=== PATIENT | male | born 1950 | race Caucasian/White ===

== ENCOUNTER 2018-04-15 15:44 | Inpatient (IN) ==
[2018-04-15] MEDS ORDERED: Metoprolol Inj 5 MG/5 ML Vial IV.PUSH ONE (17:21)
--- NOTE | 2018-04-15 17:31 | ED ---
HPI General Chief Complaint: Shortness of Breath/Dyspnea Stated Complaint: SOB,swollen right leg,weakness Time Seen by Provider: 04/15/18 17:12 Source: patient Mode of arrival: ambulatory Limitations: no limitations History of Present Illness The patient is a 68-year-old male who presents to the emergency department via private vehicle for shortness of breath. The patient notes a recent history of shortness of breath, worse with exertion and with lying supine. The patient states exertional activity causes shortness of breath, he is only able to walk short distances prior to having to sit down secondary to the shortness of breath. He also complains of shortness of breath lying supine , has to sit upright on several pillows, also states he sat upright in a recliner last night and was still unable to sleep. The patient saw his physician at the [facility] who placed him on Xarelto for atrial fibrillation and referred him to a baker test. The patient saw a baker test in [place], [place], who is going to schedule an outpatient stress test. The patient does have a history of atrial fibrillation but denies any known history of congestive heart failure. He also complains of increased swelling to the right lower extremity. Symptoms are moderate. MD Complaint: shortness of breath Onset (ago): day(s) Severity: moderate Consistency/Duration: intermittent and progressively worsening Relieving factors: rest Exacerbating factors: lying flat and exertion Associated symptoms: orthopnea Treatment prior to arrival: none Related Data Home oxygen amount: none Home Medications Medication Instructions Recorded Confirmed aspirin 81 mg PO DAILY 04/15/18 04/15/18 digoxin 0.125 mg PO DAILY 04/15/18 04/15/18 omeprazole 20 mg PO DAILY 04/15/18 04/15/18 rivaroxaban [Xarelto] 20 mg PO DAILY 04/15/18 04/15/18 simvastatin 20 mg PO QPM 04/15/18 04/15/18 terazosin 1 mg PO BID 04/15/18 04/15/18 Allergies Allergy/AdvReac Type Severity Reaction Status Date / Time penicillin G Allergy Severe Rash Verified 04/15/18 17:39 warfarin [From Coumadin] Allergy Rash Verified 04/15/18 17:39 Review of Systems ROS: all other systems reviewed are negative [facility] Medical History Medical History Atrial fibrillation (Acute) GERD (gastroesophageal reflux disease) (Acute) High cholesterol (Acute) Prostate enlargement (Acute) Social History Social History Substance History: No History of Abuse Second Hand Smoke Exposure: No Smoking Status: Never smoker How Often Do You Have a Drink Containing Alcohol: 2 to 4 times a month Recent Travel in [facility] within the Last 8 Weeks: No Recent Out of Country Travel within the Last 8 Weeks: No Exam Narrative Exam Narrative: GENERAL: Awake, alert, pleasant 68-year-old male who appears his stated age and is in no acute respiratory distress. SKIN: Focused skin assessment warm/dry. HEAD: Atraumatic. Normocephalic. EYES: Pupils equal and round. No scleral icterus. No injection or drainage. ENT: No nasal bleeding or discharge. Mucous membranes pink and moist. NECK: Trachea midline. No JVD. CARDIOVASCULAR: Irregularly irregular, heart rate in the 120s. RESPIRATORY: No accessory muscle use. Diminished breath sounds right base with a few crackles. GASTROINTESTINAL: Abdomen soft, non-tender, nondistended. Reducible umbilical hernia. MUSCULOSKELETAL: No obvious deformities. No clubbing. No cyanosis. Right lower extremity edema and increased size when compared to the left lower extremity. NEUROLOGICAL: Awake and alert. No obvious cranial nerve deficits. Motor grossly within normal limits. Normal speech. PSYCHIATRIC: Appropriate mood and affect; insight and judgment normal. Course Initial Documented Vital Signs Temperature 97.5 F L 04/15/18 16:21 Pulse Rate 112 H 04/15/18 16:21 Respiratory Rate 19 04/15/18 16:21 Blood Pressure 125/55 L 04/15/18 16:21 Pulse Oximetry 97 04/15/18 16:21 Last Documented Vital Signs Temperature 97.5 F L 04/15/18 16:21 Pulse Rate 84 04/15/18 17:56 Respiratory Rate 18 04/15/18 17:56 Blood Pressure 118/78 04/15/18 17:56 Pulse Oximetry 96 04/15/18 17:56 Medical Decision Making [facility] Narrative Medical decision making narrative: Chest x-ray reveals mild congestive heart failure with cardiomegaly. Ultrasound is negative for DVT.IV was established, labs are drawn and sent, and the patient was placed on cardiac telemetry monitoring and continuous pulse oximetry monitoring. Chest x-ray was performed. EKG was ordered and interpreted. The patient was administered Lopressor 5 mg intravenously and aspirin. Digoxin level was sent to lab. Dig level was subtherapeutic at 0.4. Patient's troponin is elevated at 0.07. Chest x-ray does reveal cardiomegaly and mild CHF. Patient has new onset CHF known require admission with echocardiogram and further evaluation. Patient is already quite anticoagulated with Xarelto. The on-call medical service was paged for admission. Medical Screen Exam Complete: Yes Emergency Medical Condition: Yes Differential Diagnosis Differential Diagnosis: Differential diagnosis includes atrial fibrillation with RVR, new onset congestive heart failure, cardiomyopathy, pulmonary embolism , DVT, acute coronary syndrome, ACS. Lab Data Lab results reviewed: Yes I reviewed the patient's lab results. Lab results narrative: BNP was elevated. Troponin is elevated at 0.07. Result diagrams: 04/15/18 17:33 04/15/18 17:33 Lab Results 04/15/18 04/15/18 04/15/18 Range/Units 17:33 17:33 17:33 WBC 9.5 (4.0-11.0) th/mm3 RBC 5.18 (4.50-5.90) mil/mm3 Hgb 15.4 (13.0-17.0) gm/dL Hct 46.4 (39.0-51.0) % MCV 89.6 (80.0-100.0) fL MCH 29.7 (27.0-34.0) pg MCHC 33.2 (32.0-36.0) % RDW 15.0 (11.6-17.2) % Plt Count 252 (150-450) th/mm3 MPV 10.3 (7.0-11.0) fL Neut % (Auto) 63.7 (16.0-70.0) % Lymph % (Auto) 27.2 (9.0-44.0) % [place] % (Auto) 8.2 H (0.0-8.0) % Eos % (Auto) 0.5 (0.0-4.0) % Baso % (Auto) 0.4 (0.0-2.0) % Neut # (Auto) 6.0 (1.8-7.7) th/mm3 Lymph # (Auto) 2.6 (1.0-4.8) th/mm3 [place] # (Auto) 0.8 (0.0-0.9) th/mm3 Eos # (Auto) 0.1 (0.0-0.4) th/mm3 Baso # (Auto) 0.0 (0.0-0.2) th/mm3 WBC Differential . Differential Comment Auto diff final PT 12.5 H (9.8-11.6) sec INR 1.2 Ratio APTT 25.9 (24.3-30.1) sec Sodium 140 (136-145) meq/L Potassium 4.4 (3.5-5.1) meq/L Chloride 108 H (98-107) meq/L Carbon Dioxide 23.0 (21.0-32.0) meq/L Anion Gap 9 (5-15) meq/L BUN 18 (7-18) mg/dL Creatinine 1.20 (0.60-1.30) mg/dL Estimated GFR 60 L (>89) mL/min Random Glucose 91 (74-106) mg/dL Calcium 8.8 (8.5-10.1) mg/dL Magnesium 2.2 (1.5-2.5) mg/dL Total Bilirubin 1.5 H (0.2-1.0) mg/dL AST 29 (15-37) U/L ALT 37 (12-78) U/L Alkaline Phosphatase 78 (45-117) U/L Total Creatine Kinase 102 (39-308) U/L Troponin I 0.07 H (0.02-0.05) ng/mL B-Natriuretic Peptide (0-100) pg/mL Total Protein 7.2 (6.4-8.2) g/dL Albumin 3.4 (3.4-5.0) g/dL Digoxin 0.4 L (0.8-2.0) ng/mL 04/15/18 Range/Units 17:33 WBC (4.0-11.0) th/mm3 RBC (4.50-5.90) mil/mm3 Hgb (13.0-17.0) gm/dL Hct (39.0-51.0) % MCV (80.0-100.0) fL MCH (27.0-34.0) pg MCHC (32.0-36.0) % RDW (11.6-17.2) % Plt Count (150-450) th/mm3 MPV (7.0-11.0) fL Neut % (Auto) (16.0-70.0) % Lymph % (Auto) (9.0-44.0) % [place] % (Auto) (0.0-8.0) % Eos % (Auto) (0.0-4.0) % Baso % (Auto) (0.0-2.0) % Neut # (Auto) (1.8-7.7) th/mm3 Lymph # (Auto) (1.0-4.8) th/mm3 [place] # (Auto) (0.0-0.9) th/mm3 Eos # (Auto) (0.0-0.4) th/mm3 Baso # (Auto) (0.0-0.2) th/mm3 WBC Differential Differential Comment PT (9.8-11.6) sec INR Ratio APTT (24.3-30.1) sec Sodium (136-145) meq/L Potassium (3.5-5.1) meq/L Chloride (98-107) meq/L Carbon Dioxide (21.0-32.0) meq/L Anion Gap (5-15) meq/L BUN (7-18) mg/dL Creatinine (0.60-1.30) mg/dL Estimated GFR (>89) mL/min Random Glucose (74-106) mg/dL Calcium (8.5-10.1) mg/dL Magnesium (1.5-2.5) mg/dL Total Bilirubin (0.2-1.0) mg/dL AST (15-37) U/L ALT (12-78) U/L Alkaline Phosphatase (45-117) U/L Total Creatine Kinase (39-308) U/L Troponin I (0.02-0.05) ng/mL B-Natriuretic Peptide 1142 H (0-100) pg/mL Total Protein (6.4-8.2) g/dL Albumin (3.4-5.0) g/dL Digoxin (0.8-2.0) ng/mL Imaging Data Attestation: I personally reviewed and interpreted this imaging study as follows : My impression: Cardiomegaly with mild CHF Radiologist's impression: Chest X-Ray 04/15/18 17:21 CONCLUSION: Mild cardiomegaly and patchy areas of opacity in both lower lungs. Venous Doppler Study 04/15/18 17:21 CONCLUSION: 1. No sonographic evidence for right lower extremity DVT. ECG Data EKG Prior to Arrival: No Attestation: I personally reviewed and interpreted this ECG as follows: Interpretation: EKG reveals atrial fibrillation with RVR. Nonspecific ST and T wave changes. Low QRS voltage in extremity leads. Discharge Plan Discharge Disposition Patient Disposition: 30 Still Patient Discharge Condition Condition: Stable Discharge Details Diagnosis: Atrial fibrillation with RVR, New onset of congestive heart failure, Elevated troponin Physicians Team ED Provider: Asif Ley Primary Care Provider: [facility] Rxs /Orders / Referrals /Forms Prescriptions: No Action terazosin 1 mg Capsule 1 mg PO BID RF: 0 simvastatin 20 mg Tablet 20 mg PO QPM RF: 0 omeprazole 20 mg Capsule,Delayed Release(Dr/Ec) 20 mg PO DAILY RF: 0 aspirin 81 mg Tablet,Chewable 81 mg PO DAILY RF: 0 digoxin 125 mcg Tablet 0.125 mg PO DAILY RF: 0 rivaroxaban [Xarelto] 20 mg Tablet 20 mg PO DAILY RF: 0 Status ED Status: With Doctor
--- NOTE | 2018-04-15 17:51 | XR ---
EXAM DATE: 04/15/2018 5:49 PM EDT AGE/SEX: 68 years / Male INDICATIONS: Shortness of breath. CLINICAL DATA: This is the patient's initial encounter. Patient reports that signs and symptoms have been present for 1 month and indicates a pain score of 0/10. MEDICAL/SURGICAL HISTORY: None. None. COMPARISON: [facility] [place], CHEST SINGLE AP, 06/21/2013. . FINDINGS: The heart is enlarged. Patchy areas of opacity without consolidation in the medial lower lungs bilate rally. Both hemidiaphragms are ununited. Stable area of subsegmental atelectasis lower lateral left l noreen. No evidence of pleural effusion. CONCLUSION: Mild cardiomegaly and patchy areas of opacity in both lower lungs. Electronically signed by: Shabbir Andre MD 04/15/2018 5:50 PM EDT
[2018-04-15 18:14] LABS: Baso % (Auto) 0.4 % (0.0-2.0); Eos # (Auto) 0.1 th/mm3 (0.0-0.4); Eos % (Auto) 0.5 % (0.0-4.0); Hematocrit 46.4 % (39.0-51.0); Hemoglobin 15.4 gm/dL (13.0-17.0); Lymph # (Auto) 2.6 th/mm3 (1.0-4.8); Lymph % (Auto) 27.2 % (9.0-44.0); Mean Corpuscular HGB Conc 33.2 % (32.0-36.0); Mean Corpuscular Hemoglobin 29.7 pg (27.0-34.0); Mean Corpuscular Volume 89.6 fL (80.0-100.0); Mean Platelet Volume 10.3 fL (7.0-11.0); Mono # (Auto) 0.8 th/mm3 (0.0-0.9); Mono % (Auto) 8.2 % (0.0-8.0); Neut % (Auto) 63.7 % (16.0-70.0); Platelet Count 252 th/mm3 (150-450); Red Blood Count 5.18 mil/mm3 (4.50-5.90); White Blood Count 9.5 th/mm3 (4.0-11.0)
[2018-04-15 18:20] LABS: Activated Partial Thrombo Time 25.9 sec (24.3-30.1); INR 1.2 Ratio; Prothrombin Time 12.5 sec (9.8-11.6)
--- NOTE | 2018-04-15 18:35 | US ---
EXAM DATE: 04/15/2018 6:33 PM EDT AGE/SEX: 68 years / Male INDICATIONS: Right leg swelling. CLINICAL DATA: This is the patient's initial encounter. Patient reports that signs and symptoms have been present for 3 days and indicates a pain score of 0/10. MEDICAL/SURGICAL HISTORY: Gastroesophageal reflux disease. Hypercholesterolemia. Atrial fibril lation. Prostate enlargement. None. COMPARISON: No prior exams available for comparison. TECHNIQUE: Venous ultrasound of both lower extremities was performed from the inguinal ligament to t he proximal calf. Real-time, color Doppler and spectral tracing, compression and augmentation techni ques were used. FINDINGS: Normal compression of the deep venous system from the inguinal region to the proximal calf . No echogenic clot is seen. Normal response of the venous system to augmentation and respiration. CONCLUSION: 1. No sonographic evidence for right lower extremity DVT. Electronically signed by: Florentino Smith MD 04/15/2018 6:33 PM EDT
[2018-04-15 18:52] LABS: Alkaline Phosphatase 78 U/L (45-117); Blood Urea Nitrogen 18 mg/dL (7-18); Creatine Kinase 102 U/L (39-308); Digoxin 0.4 ng/mL (0.8-2.0); Total Protein 7.2 g/dL (6.4-8.2); Troponin I 0.07 ng/mL (0.02-0.05)
[2018-04-15 18:58] LABS: Alanine Aminotransferase 37 U/L (12-78); Albumin 3.4 g/dL (3.4-5.0); Anion Gap 9 meq/L (5-15); Aspartate Aminotransferase 29 U/L (15-37); Calcium 8.8 mg/dL (8.5-10.1); Chloride 108 meq/L (98-107); Glomerular Filtration Rate 60 mL/min (>89); Glucose,Random 91 mg/dL (74-106); Magnesium 2.2 mg/dL (1.5-2.5); Potassium 4.4 meq/L (3.5-5.1); Sodium 140 meq/L (136-145)
[2018-04-15 19:05] LABS: Creatine Kinase MB 2.5 ng/mL (0.5-3.6)
[2018-04-15] MEDS ORDERED: Acetaminophen 325 MG Tablet PO PRN (21:03)
[2018-04-15] MEDS ORDERED: Bisacodyl 10 MG Supp RECTAL PRN (21:03)
[2018-04-15] MEDS: Metoprolol Tartrate 25 MG Tablet PO SCH (21:22)
--- NOTE | 2018-04-15 21:27 | P.HP ---
History of Present Illness Service: [facility] Primary Care Physician: Physician 's [facility] History of Present Illness: 68-year-old male with a past medical history significant for hyperlipidemia, BPH , GERD and atrial fibrillation anticoagulated on Xarelto presents the emergency department for evaluation of shortness of breath and right lower extremity swelling. The patient reports that he has had recently worsening shortness of breath that has been over the past 3 days. He reports that his symptoms worsen when he is lying flat or with exertion. He also endorses intermittent palpitations. He reports he has had to sleep in a recliner last night and was still unable to sleep secondary to his dyspnea. The patient reports that he saw his physician at the [place] [facility] who placed him on Xarelto for atrial fibrillation and referred him to a disk sander who is in [place]. Patient denies any known history of congestive heart failure. He also complains of a 2 day history of increased swelling to the right lower extremity. He reports his foot has been swollen for a long time but now his leg is also swollen. He denies any chest pain. No abdominal pain. No nausea/ vomiting/diarrhea. No fever/chills. No lateralizing signs/symptoms. Inpatient Certification: I certify that the inpatient services were ordered in accordance with Medicare regulations governing the order. This includes certification that hospital inpatient services are reasonable and necessary and in the case of services not specified as inpatient-only under 42 CFR 419.22(n), that they are appropriately provided as inpatient services in accordance to with the 2-midnight benchmark under 43 CFR 412.3(e) Estimated Total Length of Stay (Days): 2 Plans for Post Hospital Care: Home Review of Systems All other systems reviewed negative except as stated in HPI [facility] - History History Provided By: Patient - Medical / Surgical Hx Neg / Unobtainable Surgical History: No Previous Surgery - Medical History Medical History: Medical History (Last Updated 04/15/18 @ 17:37 by Uriel García) Atrial fibrillation GERD (gastroesophageal reflux disease) High cholesterol Prostate enlargement - Family History Family History: Family History (Last Updated 04/15/18 @ 21:20 by Queenie Cole MD) Other Family history normal - Tobacco History Second Hand Smoke Exposure: No Tobacco Use In Past 30 Days: No Smoking Status: Never smoker - Alcohol History How Often Do You Have a Drink Containing Alcohol: 2 to 4 times a month - Substance Use History Substance History: No History of Abuse - Travel History Recent Travel in the [place] Within the Last 8 Weeks: No Recent Travel Out of the Country Within the Last 8 Weeks: No - Immunization History Tetanus Immunization: <5 Years Hx Influenza Vaccine This Season: No Medications and Allergies Active Medications: Active Medications Acetaminophen (Tylenol) 650 mg PO Q4H PRN PRN Reason: Temp > 100.4 Al Hydroxide/Mg Hydroxide (Milk Of Magnesia Liq) 30 ml PO Q12H PRN PRN Reason: Mild Constipation Bisacodyl (Dulcolax Supp) 10 mg RECTAL DAILY PRN PRN Reason: SEVERE CONSITIPATION Furosemide (Lasix Inj) 40 mg IV.PUSH BID@0900,1800 PEARL Lactulose (Lactulose Liq) 30 ml PO DAILY PRN PRN Reason: SEVERE CONSITIPATION Metoprolol Tartrate (Lopressor) 12.5 mg PO BID PEARL Ondansetron HCl (Zofran Inj) 4 mg IV.PUSH Q6H PRN PRN Reason: NAUSEA OR VOMITING Senna/Docusate Sodium (Yenni-Colace) 1 tab PO BID PEARL Sennosides (Senokot) 17.2 mg PO Q12H PRN PRN Reason: Moderate Constipation Sodium Chloride (Ns Flush) 2 ml IV.FLUSH BID PEARL Sodium Chloride (Ns Flush) 2 ml IV.FLUSH UNSCH PRN PRN Reason: FLUSH AFTER USING IV ACCESS Allergies Allergy/AdvReac Type Severity Reaction Status Date / Time penicillin G Allergy Severe Rash Verified 04/15/18 17:39 warfarin [From Coumadin] Allergy Rash Verified 04/15/18 17:39 Home Medications Medication Instructions Recorded Confirmed Type aspirin 81 mg PO DAILY 04/15/18 04/15/18 History digoxin 0.125 mg PO DAILY 04/15/18 04/15/18 History omeprazole 20 mg PO DAILY 04/15/18 04/15/18 History rivaroxaban [Xarelto] 20 mg PO DAILY 04/15/18 04/15/18 History simvastatin 20 mg PO QPM 04/15/18 04/15/18 History terazosin 1 mg PO BID 04/15/18 04/15/18 History Exam Vital signs: Vital Signs 04/15/18 16:21 04/15/18 17:36 04/15/18 17:56 Temperature 97.5 F L Pulse Rate 112 H 124 H 84 Respiratory Rate 19 18 18 Blood Pressure 125/55 L 114/83 118/78 Pulse Oximetry 97 96 96 04/15/18 19:13 04/15/18 20:15 Temperature Pulse Rate 92 H Respiratory Rate 18 16 Blood Pressure 122/74 Pulse Oximetry 96 Intake & Output 04/15/18 04/15/18 04/16/18 06:59 18:59 06:59 Weight 89.811 kg Narrative: Gen.: No acute distress Head: Normocephalic. Atraumatic. EENT: Pupils equal round and reactive to light. Nose without drainage. Airway intact. Throat without injection. Cardiovascular: Tachycardic. Irregularly irregular rhythm. No murmurs/rubs/ gallops. Respiratory: Lungs clear to auscultation bilaterally. No wheezes or rhonchi. Abdomen: Soft, nontender, nondistended. No peritoneal signs. Musculoskeletal: No gross deformities. 2+ right lower extremity edema. Skin: No obvious rashes or erythema. Neuro: Sensory and motor grossly intact. Cranial nerves II through XII grossly intact. Results - Labs CBC & Chem 7: 04/15/18 17:33 04/15/18 17:33 Labs: Laboratory Results - last 24 hr 04/15/18 04/15/18 04/15/18 17:33 17:33 17:33 WBC 9.5 RBC 5.18 Hgb 15.4 Hct 46.4 MCV 89.6 MCH 29.7 MCHC 33.2 RDW 15.0 Plt Count 252 MPV 10.3 Neut % (Auto) 63.7 Lymph % (Auto) 27.2 [place] % (Auto) 8.2 H Eos % (Auto) 0.5 Baso % (Auto) 0.4 Neut # (Auto) 6.0 Lymph # (Auto) 2.6 [place] # (Auto) 0.8 Eos # (Auto) 0.1 Baso # (Auto) 0.0 WBC Differential . Differential Comment Auto diff final PT 12.5 H INR 1.2 APTT 25.9 Sodium 140 Potassium 4.4 Chloride 108 H Carbon Dioxide 23.0 Anion Gap 9 BUN 18 Creatinine 1.20 Estimated GFR 60 L Random Glucose 91 Calcium 8.8 Magnesium 2.2 Total Bilirubin 1.5 H AST 29 ALT 37 Alkaline Phosphatase 78 Total Creatine Kinase 102 CK-MB (CK-2) 2.5 Troponin I 0.07 H B-Natriuretic Peptide Total Protein 7.2 Albumin 3.4 Digoxin 0.4 L 04/15/18 17:33 WBC RBC Hgb Hct MCV MCH MCHC RDW Plt Count MPV Neut % (Auto) Lymph % (Auto) [place] % (Auto) Eos % (Auto) Baso % (Auto) Neut # (Auto) Lymph # (Auto) [place] # (Auto) Eos # (Auto) Baso # (Auto) WBC Differential Differential Comment PT INR APTT Sodium Potassium Chloride Carbon Dioxide Anion Gap BUN Creatinine Estimated GFR Random Glucose Calcium Magnesium Total Bilirubin AST ALT Alkaline Phosphatase Total Creatine Kinase CK-MB (CK-2) Troponin I B-Natriuretic Peptide 1142 H Total Protein Albumin Digoxin - Imaging Impressions Chest X-Ray 04/15/18 17:21 CONCLUSION: Mild cardiomegaly and patchy areas of opacity in both lower lungs. Venous Doppler Study 04/15/18 17:21 CONCLUSION: 1. No sonographic evidence for right lower extremity DVT. Caprini VTE Risk Assessment Caprini VTE Risk Assessment: Moderate/High Risk (score >= 2) Caprini Risk Assessment Model: Point Value = 1 Point Value = 2 Point Value = 3 Point Value = 5 Age 41-60 Minor surgery BMI > 25 kg/m2 Swollen legs Varicose veins or History of unexplained or recurrent spontaneous Oral contraceptives or hormone replacement Sepsis (< 1 month) Serious lung disease, including pneumonia (< 1 month) Abnormal pulmonary function Acute myocardial infarction Congestive heart failure (< 1 month) History of inflammatory bowel disease Medical patient at bed rest Age 61-74 Arthroscopic surgery Major open surgery (> 45 min) Laparoscopic surgery (> 45 min) Malignancy Confined to bed (> 72 hours) Immobilizing plaster cast Central venous access Age >= 75 History of VTE Family history of VTE Factor V Leiden Prothrombin [id number] Lupus anticoagulant Anticardiolipin antibodies Elevated serum homocysteine Heparin-induced thrombocytopenia Other congenital or acquired thrombophilia Stroke (< 1 month) Elective arthroplasty Hip, pelvis, or leg fracture Acute spinal cord injury (< 1 month) Prophylaxis Regimen: Total Risk Factor Score Risk Level Prophylaxis Regimen 0-1 Low Early ambulation 2 Moderate Order ONE of the following: *Sequential Compression Device (SCD) *Heparin 5000 units SQ BID 3-4 Higher Order ONE of the following medications: *Heparin 5000 units SQ TID *Enoxaparin/Lovenox 40 mg SQ daily (WT < 150 kg, CrCl > 30 mL/min) *Enoxaparin/Lovenox 30 mg SQ daily (WT < 150 kg, CrCl > 10-29 mL/min) *Enoxaparin/Lovenox 30 mg SQ BID (WT < 150 kg, CrCl > 30 mL/min) AND/OR *Sequential Compression Device (SCD) 5 or more Highest Order ONE of the following medications: *Heparin 5000 units SQ TID (Preferred with Epidurals) *Enoxaparin/Lovenox 40 mg SQ daily (WT < 150 kg, CrCl > 30 mL/min) *Enoxaparin/Lovenox 30 mg SQ daily (WT < 150 kg, CrCl > 10-29 mL/min) *Enoxaparin/Lovenox 30 mg SQ BID (WT < 150 kg, CrCl > 30 mL/min) AND *Sequential Compression Device (SCD) Assessment and Plan - Plan Assessment/plan: 1. Atrial fibrillation with rapid ventricular response/elevated troponin EKG significant for atrial fibrillation with rapid ventricular response, no ST segment elevations or depressions, personally reviewed Troponin 0.07, likely secondary to A. fib ACS rule out pending; serial troponins/EKGs Rate controlled with IV metoprolol 1 Patient on digoxin at home, subtherapeutic Continue home digoxin Start p.o. metoprolol IV metoprolol as needed Continue home Xarelto 2. New onset CHF/shortness of breath Patient with no history of CHF BNP 1142 Chest x-ray significant for mild cardiomegaly, personally reviewed IV Lasix Echo pending Cardiology consulted, appreciate assistance 3. Hyperlipidemia/BPH/GERD Continue home medications FEN N.p.o. Electrolytes: Urine replete as needed Xarelto
[2018-04-16 00:30] LABS: Troponin I 0.06 ng/mL (0.02-0.05)
[2018-04-16] MEDS: Digoxin 125 MCG Tablet PO SCH (08:37)
[2018-04-16] MEDS: Rivaroxaban 20 MG Tablet PO SCH (08:37)
[2018-04-16] MEDS: Pantoprazole Sodium 20 MG DR Tablet PO SCH (08:38)
[2018-04-16] MEDS: Senna/Docusate Sodium 8.6/50 MG Tablet PO SCH ×2 (08:38→22:18)
[2018-04-16] MEDS: Metoprolol Tartrate 25 MG Tablet PO SCH ×2 (08:39→22:18)
[2018-04-16 09:03] LABS: Troponin I 0.05 ng/mL (0.02-0.05)
--- NOTE | 2018-04-16 14:54 | ECG ---
Date Performed: 04/15/2018 Time Performed: 16:54:36 PTAGE: 68 years EKG: ATRIAL FIBRILLATION WITH RAPID VENTRICULAR RESPONSE LOW QRS VOLTAGE IN EXTREMITY LEADS NONS PECIFIC ST & T-WAVE ABNORMALITY ABNORMAL RHYTHM ECG Compared to PREVIOUS TRACING , ventricular response to atrial fibrillation is much faster, otherwise no significant change. PREVIOUS TRACIN06/22/2013 01.43 DOCTOR: Ruddy Trevino Interpretating Date/Time 04/16/2018 14:54:02
--- NOTE | 2018-04-16 14:56 | ECG ---
Date Performed: 04/16/2018 Time Performed: 01:25:31 PTAGE: 68 years EKG: ATRIAL FIBRILLATION LOW VOLTAGE IN LIMB LEADS NONSPECIFIC T WAVE CHANGES Compared to previo us tracing, ventricular response to atrial fibrillation is now in the normal range. T-wave changes an terolaterally are more prominent. ABNORMAL ECG PREVIOUS TRACING : 04/15/2018 16.54 DOCTOR: Ruddy Trevino Interpretating Date/Time 04/16/2018 14:55:00
--- NOTE | 2018-04-16 15:19 | P.PNIM ---
Subjective Interval history: A. fib RVR has improved through time. Patient was started on metoprolol for this. No evidence of recurrence of sustained A. fib RVR. He has improvement of lower extremity edema and his pulmonary edema appears to be improving also. However, echocardiogram shows ejection fraction between 20 and 25% based on a preliminary wet read. Further workup is warranted. Physical Exam Vital signs: Vital Signs 04/15/18 16:21 04/15/18 17:36 04/15/18 17:56 Temperature 97.5 F L Pulse Rate 112 H 124 H 84 Respiratory Rate 19 18 18 Blood Pressure 125/55 L 114/83 118/78 Pulse Oximetry 97 96 96 04/15/18 19:13 04/15/18 20:15 04/15/18 21:23 Temperature Pulse Rate 92 H 103 H Respiratory Rate 18 16 18 Blood Pressure 122/74 120/82 Pulse Oximetry 96 98 04/15/18 22:11 04/15/18 22:35 04/15/18 23:51 Temperature 98.1 F Pulse Rate 91 H 89 98 H Respiratory Rate 16 16 18 Blood Pressure 125/74 Pulse Oximetry 99 98 95 04/16/18 04:00 04/16/18 08:00 04/16/18 08:24 Temperature 97.9 F 97.4 F L Pulse Rate 87 102 H Respiratory Rate 18 16 Blood Pressure 136/91 H 98/75 L Pulse Oximetry 94 L 93 L 95 04/16/18 12:00 Temperature 97.6 F Pulse Rate 60 Respiratory Rate 16 Blood Pressure 119/63 Pulse Oximetry 94 L Intake & Output 04/15/18 04/16/18 04/16/18 18:59 06:59 18:59 Weight 89.811 kg Other: Date of Last Bowel Movement 04/15/18 Narrative: GENERAL: NAD, A&Ox3 HEAD: Normocephalic. NECK: Supple, trachea midline. No lymphadenopathy. EYES: No scleral icterus. No injection or drainage. CARDIOVASCULAR: Regular rate and rhythm without murmurs, gallops, or rubs. RESPIRATORY: Breath sounds equal bilaterally. No accessory muscle use. GASTROINTESTINAL: Abdomen soft, non-tender, nondistended. MUSCULOSKELETAL: No cyanosis, or edema. SKIN: Warm and dry. NEURO: No focal neurological deficits. Results - Labs CBC & Chem 7: 04/15/18 17:33 04/15/18 17:33 Laboratory Results - last 24 hr 04/15/18 04/15/18 04/15/18 17:33 17:33 17:33 WBC 9.5 RBC 5.18 Hgb 15.4 Hct 46.4 MCV 89.6 MCH 29.7 MCHC 33.2 RDW 15.0 Plt Count 252 MPV 10.3 Neut % (Auto) 63.7 Lymph % (Auto) 27.2 [place] % (Auto) 8.2 H Eos % (Auto) 0.5 Baso % (Auto) 0.4 Neut # (Auto) 6.0 Lymph # (Auto) 2.6 [place] # (Auto) 0.8 Eos # (Auto) 0.1 Baso # (Auto) 0.0 WBC Differential . Differential Comment Auto diff final PT 12.5 H INR 1.2 APTT 25.9 Sodium 140 Potassium 4.4 Chloride 108 H Carbon Dioxide 23.0 Anion Gap 9 BUN 18 Creatinine 1.20 Estimated GFR 60 L Random Glucose 91 Calcium 8.8 Magnesium 2.2 Total Bilirubin 1.5 H AST 29 ALT 37 Alkaline Phosphatase 78 Total Creatine Kinase 102 CK-MB (CK-2) 2.5 Troponin I 0.07 H B-Natriuretic Peptide Total Protein 7.2 Albumin 3.4 Digoxin 0.4 L 04/15/18 04/15/18 04/16/18 17:33 23:48 05:30 WBC RBC Hgb Hct MCV MCH MCHC RDW Plt Count MPV Neut % (Auto) Lymph % (Auto) [place] % (Auto) Eos % (Auto) Baso % (Auto) Neut # (Auto) Lymph # (Auto) [place] # (Auto) Eos # (Auto) Baso # (Auto) WBC Differential Differential Comment PT INR APTT Sodium Potassium Chloride Carbon Dioxide Anion Gap BUN Creatinine Estimated GFR Random Glucose Calcium Magnesium Total Bilirubin AST ALT Alkaline Phosphatase Total Creatine Kinase 66 74 CK-MB (CK-2) Troponin I 0.06 H 0.05 B-Natriuretic Peptide 1142 H Total Protein Albumin Digoxin - Imaging Impressions Chest X-Ray 04/15/18 17:21 CONCLUSION: Mild cardiomegaly and patchy areas of opacity in both lower lungs. Venous Doppler Study 04/15/18 17:21 CONCLUSION: 1. No sonographic evidence for right lower extremity DVT. Assessment and Plan - Assessment (1) Atrial fibrillation with RVR Code(s): I48.91 - Unspecified atrial fibrillation Status: Acute (2) New onset of congestive heart failure Code(s): I50.9 - Heart failure, unspecified Status: Acute (3) Elevated troponin Code(s): R74.8 - Abnormal levels of other serum enzymes Status: Acute - Plan 68-year-old male admitted secondary to A. fib RVR with new finding of CHF Atrial fibrillation with rapid ventricular response Elevated troponin Slight downward trend in troponin through time A. fib RVR along with CHF may have been the cause of his mild elevation in troponin Continue metoprolol Continue digoxin Xarelto Cardiology following New onset CHF shortness of breath No prior history of CHF Ejection fraction approximately 20-25% Cardiology following Hyperlipidemia Continue present treatment Follow as an outpatient BPH GERD Continue home medications DVT prophylaxis Xarelto
[2018-04-17 08:31] LABS: Baso % (Auto) 0.4 % (0.0-2.0); Eos % (Auto) 0.7 % (0.0-4.0); Hematocrit 47.3 % (39.0-51.0); Hemoglobin 15.7 gm/dL (13.0-17.0); Lymph # (Auto) 1.7 th/mm3 (1.0-4.8); Lymph % (Auto) 23.4 % (9.0-44.0); Mean Corpuscular HGB Conc 33.1 % (32.0-36.0); Mean Corpuscular Volume 90.5 fL (80.0-100.0); Mean Platelet Volume 10.2 fL (7.0-11.0); Mono # (Auto) 0.5 th/mm3 (0.0-0.9); Mono % (Auto) 7.6 % (0.0-8.0); Neut # (Auto) 4.9 th/mm3 (1.8-7.7); Neut % (Auto) 67.9 % (16.0-70.0); Platelet Count 212 th/mm3 (150-450); Red Blood Count 5.23 mil/mm3 (4.50-5.90); Red Cell Distribution Width 14.7 % (11.6-17.2); White Blood Count 7.2 th/mm3 (4.0-11.0)
[2018-04-17 09:05] LABS: Alanine Aminotransferase 34 U/L (12-78); Albumin 3.2 g/dL (3.4-5.0); Alkaline Phosphatase 76 U/L (45-117); Anion Gap 10 meq/L (5-15); Aspartate Aminotransferase 18 U/L (15-37); Blood Urea Nitrogen 16 mg/dL (7-18); Calcium 8.8 mg/dL (8.5-10.1); Chloride 102 meq/L (98-107); Glomerular Filtration Rate 57 mL/min (>89); Glucose,Random 117 mg/dL (74-106); Potassium 3.5 meq/L (3.5-5.1); Sodium 140 meq/L (136-145); Troponin I 0.05 ng/mL (0.02-0.05)
--- NOTE | 2018-04-17 11:21 | ECHRPT ---
Indication: heart failure CONCLUSIONS The left ventricular systolic function is severely reduced with an estimated ejection fraction in th e range of 20-25%. Moderately dilated left ventricle. Wall thickness is measured at the upper limits of normal. There is global left ventricular dysfunction. The right ventriclar size is upper limits of normal. The left atrial size is ypersklx-py-ovfobboo dilated. The right atrial size is pfqw-ls-sflzeakjlr dilated. Mild thickening of the mitral valve leaflets. Moderate mitral valve regurgitation. Diffuse calcification of the aortic valve. Mild aortic valve regurgitation. Mild thickening of the tricuspid valve leaflets. There is severe tricuspid regurgitation. The estimated pulmonary arterial pressure is 62.1 mmHg. Mild pulmonary valve regurgitation. BP: / HR: Rhythm: Sinus MEASUREMENTS (Male / Female) Normal Values Technical Quality:Good 2D ECHO LV Diastolic Diameter PLAX 5.9 cm 4.2 - 5.9 / 3.9 - 5.3 cm LV Systolic Diameter PLAX 5.4 cm IVS Diastolic Thickness 1.1 cm 0.6 - 1.0 / 0.6 - 0.9 cm LVPW Diastolic Thickness 1.1 cm 0.6 - 1.0 / 0.6 - 0.9 cm LV Relative Wall Thickness 0.4 RV Internal Dim ED PLAX 3.8 cm LVOT Diameter 1.9 cm LA Systolic Diameter LX 4.9 cm 3.0 - 4.0 / 2.7 - 3.8 cm LV Ejection Fraction MOD 4C 24.9 % LV Ejection Fraction 4C AL 24.5 % M-MODE Aortic Root Diameter MM 2.3 cm LA Systolic Diameter MM 4.8 cm LA Ao Ratio MM 2.1 AV Cusp Separation MM 1.7 cm DOPPLER AV Peak Velocity 104.0 cm/s AV Peak Gradient 4.3 mmHg AI Peak Velocity 169.0 cm/s AI Peak Gradient 11.4 mmHg AI Pressure Half Time 778.5 ms LVOT Peak Velocity 62.2 cm/s LVOT Peak Gradient 1.5 mmHg AV Area Cont Eq pk 1.7 cm MV Area PHT 5.6 cm Mitral E Point Velocity 81.9 cm/s Mitral A Point Velocity 56.8 cm/s Mitral E to A Ratio 1.4 LV E' Lateral Velocity 7.3 cm/s Mitral E to LV E' Lateral Ratio 11.2 LV E' Septal Velocity 7.2 cm/s Mitral E to LV E' Septal Ratio 11.4 TR Peak Velocity 361.0 cm/s TR Peak Gradient 52.1 mmHg Right Atrial Pressure 10.0 mmHg Pulmonary Artery Systolic Pressu 62.1 mmHg Right Ventricular Systolic Press 62.1 mmHg PV Peak Velocity 77.4 cm/s PV Peak Gradient 2.4 mmHg FINDINGS LEFT VENTRICLE The left ventricular systolic function is severely reduced with an estimated ejection fraction in th e range of 20-25%. Moderately dilated left ventricle. Wall thickness is measured at the upper limits of normal. There is global left ventricular dysfunction. RIGHT VENTRICLE The right ventriclar size is upper limits of normal. LEFT ATRIUM The left atrial size is dhjsdlai-mn-rduomdmt dilated. RIGHT ATRIUM The right atrial size is huoj-gc-jkxofhyjbb dilated. ATRIAL SEPTUM Normal atrial septal thickness without atrial level shunting by limited color doppler interrogation. AORTA The aortic root and proximal ascending aorta are normal in size on limited imaging. MITRAL VALVE Mild thickening of the mitral valve leaflets. Moderate mitral valve regurgitation. AORTIC VALVE Trileaflet aortic valve. Diffuse calcification of the aortic valve. Mild aortic valve regurgitation. TRICUSPID VALVE Mild thickening of the tricuspid valve leaflets. There is severe tricuspid regurgitation. The estimated pulmonary arterial pressure is 62.1 mmHg. PULMONARY VALVE Mild pulmonary valve regurgitation. VESSELS The inferior vena cava is normal in size. PERICARDIUM No pericardial effusion. Lasha Hernandez MD, FACC (Electronically Signed) Final Date:17 April 2018 11:20
[2018-04-17] MEDS: Digoxin 125 MCG Tablet PO SCH (13:06)
[2018-04-17] MEDS: Pantoprazole Sodium 20 MG DR Tablet PO SCH (13:06)
[2018-04-17] MEDS: Metoprolol Tartrate 25 MG Tablet PO SCH ×2 (13:11→20:34)
[2018-04-17] MEDS: Senna/Docusate Sodium 8.6/50 MG Tablet PO SCH ×2 (13:14→20:35)
[2018-04-17] MEDS: Rivaroxaban 20 MG Tablet PO SCH (16:05)
--- NOTE | 2018-04-17 17:28 | P.PNIM ---
Subjective Interval history: No new complaints from patient. Patient is hoping to go home soon. Cardiology evaluation pending. Physical Exam Vital signs: Vital Signs 04/16/18 20:00 04/16/18 23:51 04/17/18 04:00 Temperature 98.8 F 97.7 F 97.8 F Pulse Rate 63 115 H 86 Respiratory Rate 18 18 18 Blood Pressure 99/77 L 150/93 H 122/84 Pulse Oximetry 97 97 94 L 04/17/18 07:58 04/17/18 12:00 04/17/18 16:55 Temperature 97.6 F 97.5 F L Pulse Rate 71 97 H 108 H Respiratory Rate 20 18 Blood Pressure 130/91 H 110/74 Pulse Oximetry 93 L 96 Intake & Output 04/16/18 04/17/18 04/17/18 18:59 06:59 18:59 Intake Total 0 / 0 480 / 480 Output Total 2325 / 2325 Balance 0 / 0 -1845 / -1845 Weight 83.8 kg Intake: Oral 480 / 480 Other 0 / 0 Output: Urine 2325 / 2325 Other: Other Intake Source Saline Solution Weight On Admission 83.8 kg Narrative: GENERAL: NAD, A&Ox3 HEAD: Normocephalic. NECK: Supple, trachea midline. No lymphadenopathy. EYES: No scleral icterus. No injection or drainage. CARDIOVASCULAR: Regular rate and rhythm without murmurs, gallops, or rubs. RESPIRATORY: Breath sounds equal bilaterally. No accessory muscle use. GASTROINTESTINAL: Abdomen soft, non-tender, nondistended. MUSCULOSKELETAL: No cyanosis, or edema. SKIN: Warm and dry. NEURO: No focal neurological deficits. Results - Labs CBC & Chem 7: 04/17/18 07:12 04/17/18 07:12 Laboratory Results - last 24 hr 04/17/18 04/17/18 07:12 07:12 WBC 7.2 RBC 5.23 Hgb 15.7 Hct 47.3 MCV 90.5 MCH 30.0 MCHC 33.1 RDW 14.7 Plt Count 212 MPV 10.2 Neut % (Auto) 67.9 Lymph % (Auto) 23.4 [place] % (Auto) 7.6 Eos % (Auto) 0.7 Baso % (Auto) 0.4 Neut # (Auto) 4.9 Lymph # (Auto) 1.7 [place] # (Auto) 0.5 Eos # (Auto) 0.0 Baso # (Auto) 0.0 WBC Differential . Differential Comment Auto diff final Sodium 140 Potassium 3.5 D Chloride 102 Carbon Dioxide 28.0 Anion Gap 10 BUN 16 Creatinine 1.25 Estimated GFR 57 L Random Glucose 117 H Calcium 8.8 Total Bilirubin 1.9 H AST 18 ALT 34 Alkaline Phosphatase 76 Troponin I 0.05 Total Protein 7.0 Albumin 3.2 L TSH 1.730 Assessment and Plan - Assessment (1) Atrial fibrillation with RVR Code(s): I48.91 - Unspecified atrial fibrillation Status: Acute (2) New onset of congestive heart failure Code(s): I50.9 - Heart failure, unspecified Status: Acute (3) Elevated troponin Code(s): R74.8 - Abnormal levels of other serum enzymes Status: Acute - Plan 68-year-old male admitted secondary to A. fib RVR with new finding of CHF Cardiology evaluation pending. Transient episodes of tachycardia remain. Continue to monitor clinically for recurrence of A. fib RVR. No new complaints from the patient today. No chest pain. No syncope. Atrial fibrillation with rapid ventricular response Elevated troponin Slight downward trend in troponin through time A. fib RVR along with CHF may have been the cause of his mild elevation in troponin Continue metoprolol Continue digoxin Xarelto Cardiology following New onset CHF shortness of breath No prior history of CHF Ejection fraction approximately 20-25% Cardiology evaluation pending Hyperlipidemia Continue present treatment Follow as an outpatient BPH GERD Continue home medications DVT prophylaxis Xarelto
[2018-04-18] MEDS: Digoxin 125 MCG Tablet PO SCH (09:36)
[2018-04-18] MEDS: Metoprolol Tartrate 25 MG Tablet PO SCH ×2 (09:36→21:13)
[2018-04-18] MEDS: Rivaroxaban 20 MG Tablet PO SCH (09:36)
[2018-04-18] MEDS: Pantoprazole Sodium 20 MG DR Tablet PO SCH (09:37)
[2018-04-18] MEDS: Senna/Docusate Sodium 8.6/50 MG Tablet PO SCH ×2 (09:39→21:14)
--- NOTE | 2018-04-18 12:37 | P.PN ---
Subjective Interval history: Patient sitting up in chair, very anxious asking when he is going home. Indicates leg swelling has improved, no shortness of breath while ambulating, no chest pain, no cough, no sputum production. Telemetry reviewed, remains A. fib, heart rate 90s-100. Indicates that he was recently at [facility] for possible TIA and was started on Xarelto, prior to that he was on warfarin. States that he supposed to have a stress test on April [address] Storey. Physical Exam Vital signs: Vital Signs 04/17/18 16:00 04/17/18 16:55 04/17/18 20:00 Temperature 97.8 F 97.1 F L Pulse Rate 85 108 H 115 H Respiratory Rate 18 16 Blood Pressure 127/74 100/71 Pulse Oximetry 96 97 04/18/18 00:00 04/18/18 02:55 04/18/18 04:00 Temperature 97.8 F 97.8 F Pulse Rate 77 73 57 L Respiratory Rate 16 16 Blood Pressure 98/81 L 119/71 Pulse Oximetry 94 L 97 04/18/18 06:40 04/18/18 08:00 Temperature 97.4 F L 97.4 F L Pulse Rate 47 L 100 H Respiratory Rate 20 18 Blood Pressure 142/83 H 109/82 Pulse Oximetry 96 96 Intake & Output 04/17/18 04/18/18 04/18/18 18:59 06:59 18:59 Intake Total 480 / 480 240 / 240 Output Total 900 / 900 Balance -420 / -420 240 / 240 Weight 84.9 kg 83.9 kg Intake: Oral 480 / 480 240 / 240 Output: Urine 900 / 900 Other: Date of Last Bowel Movement 04/17/18 04/17/18 # Bowel Movements 1 Weight On Admission 83.8 kg Narrative: GENERAL: Well-nourished, well-developed patient in no apparent distress. SKIN: Warm and dry. HEAD: Atraumatic. Normocephalic. EYES: Pupils equal and round. No scleral icterus. No injection or drainage. ENT: No nasal bleeding or discharge. Mucous membranes pink and moist. NECK: Trachea midline. No JVD. CARDIOVASCULAR: S1-S2, irregularly irregular. RESPIRATORY: Diminished at bases. GASTROINTESTINAL: Abdomen soft, non-tender, nondistended. Hepatic and splenic margins not palpable. MUSCULOSKELETAL: Extremities without clubbing, cyanosis, or edema. No obvious deformities. NEUROLOGICAL: Awake and alert. No obvious cranial nerve deficits. Motor grossly within normal limits. Five out of 5 muscle strength in the arms and legs. Normal speech. PSYCHIATRIC: Appropriate mood and affect; insight and judgment normal. Results - Labs CBC & Chem 7: 04/17/18 07:12 04/17/18 07:12 Assessment and Plan - Assessment (1) Atrial fibrillation with RVR Code(s): I48.91 - Unspecified atrial fibrillation Status: Chronic (2) New onset of congestive heart failure Code(s): I50.9 - Heart failure, unspecified Status: Acute (3) Elevated troponin Code(s): R74.8 - Abnormal levels of other serum enzymes Status: Acute (4) Cardiomyopathy Code(s): I42.9 - Cardiomyopathy, unspecified Status: Acute (5) Hx TIA/stroke w/o resid Code(s): Z86.73 - Personal history of transient ischemic attack (TIA), and cerebral infarction without residual deficits Status: Chronic (6) Anxiety Code(s): F41.9 - Anxiety disorder, unspecified Status: Chronic (7) Hyperlipidemia Code(s): E78.5 - Hyperlipidemia, unspecified Status: Chronic - Plan 68-year-old male admitted secondary to A. fib RVR with new finding of CHF Atrial fibrillation with rapid ventricular response Elevated troponin Slight downward trend in troponin through time A. fib RVR along with CHF may have been the cause of his mild elevation in troponin Heart rate improved, 90s-100. Reported nonsustained VT, unable to find strip -Continue metoprolol 12.5 mg PO BID -Continue digoxin -Xarelto -Cardiology has evaluated, d/w NETWORK SYSTEMS ANALYST New onset CHF shortness of breath has improved, no edema now. No prior history of CHF -Echo done, Ejection fraction approximately 20-25% -Cardiology following, pt. saw Dr. Storey was supposed to have STT on 04/25. Will wait for Dr. Duenas's recommendation. -continue BB, Dig, Lasix -change to PO Lasix 20 mg PO BID -We will add low-dose lisinopril, 2.5 mg p.o. daily. Hx TIA, pt reports admission to [facility] for poss stroke. -was recently put on Xarelto Hyperlipidemia -Continue present treatment -Follow as an outpatient BPH GERD -Continue home medications DVT prophylaxis Xarelto We will follow up on cardiology recommendations. Discussed with patient at length, he is anxious to go home. (4) Cardiomyopathy Qualifiers: Cardiomyopathy type: unspecified Qualified Code(s): I42.9 - Cardiomyopathy, unspecified (7) Hyperlipidemia Qualifiers: Hyperlipidemia type: unspecified Qualified Code(s): E78.5 - Hyperlipidemia, unspecified
--- NOTE | 2018-04-18 16:00 | P.CONCA ---
History of Present Illness Service: Cardiology Consult date: 04/18/18 Requesting Physician: Yousif Pierre Reason for Consult: New onset of congestive heart failure Primary Care Provider: [facility] Chief Complaint: Increased shortness of breath History of Present Illness: This is a very pleasant 68-year-old male with a past medical history of hyperlipidemia, BPH, GERD and atrial fibrillation anticoagulated on Xarelto. Patient stated that over the last 3 days he has became increasingly short of breath with exertion or lying flat. He also complains of increased swelling in the right lower extremity. Venous Doppler was obtained which was negative for a DVT. He currently is being seen by the ID and was referred to a keel press operator in [place]. He denies any known history of congestive heart failure. Currently he denies any chest pain, pressure, palpitations, dizziness or edema. Review of Systems All other systems reviewed negative except as stated in HPI [facility], [facility]1983 - History History Provided By: Patient, Family Member - Medical History Medical History: Medical History (Last Reviewed 04/16/18 @ 07:10 by Sandra Combs) Atrial fibrillation GERD (gastroesophageal reflux disease) High cholesterol Prostate enlargement - Family History Family History: Family History (Last Reviewed 04/16/18 @ 07:10 by Sandra Combs) Other Family history normal - Tobacco History Second Hand Smoke Exposure: No Tobacco Use In Past 30 Days: No Smoking Status: Never smoker - Alcohol History How Often Do You Have a Drink Containing Alcohol: Monthly or less - Substance Use History Substance History: No History of Abuse - Travel History Recent Travel in the [place] Within the Last 8 Weeks: No Recent Travel Out of the Country Within the Last 8 Weeks: No - Immunization History Tetanus Immunization: <5 Years Hx Influenza Vaccine This Season: No Medications and Allergies Allergies Allergy/AdvReac Type Severity Reaction Status Date / Time penicillin G Allergy Severe Rash Verified 04/15/18 17:39 warfarin [From Coumadin] Allergy Rash Verified 04/15/18 17:39 Home Medications Medication Instructions Recorded Confirmed Type aspirin 81 mg PO DAILY 04/15/18 04/15/18 History digoxin 0.125 mg PO DAILY 04/15/18 04/15/18 History omeprazole 20 mg PO DAILY 04/15/18 04/15/18 History rivaroxaban [Xarelto] 20 mg PO DAILY 04/15/18 04/15/18 History simvastatin 20 mg PO QPM 04/15/18 04/15/18 History terazosin 1 mg PO BID 04/15/18 04/15/18 History Active Medications: Active Medications Acetaminophen (Tylenol) 650 mg PO Q4H PRN PRN Reason: Temp > 100.4 Al Hydroxide/Mg Hydroxide (Milk Of Magnesia Liq) 30 ml PO Q12H PRN PRN Reason: Mild Constipation Aspirin (Aspirin Chew) 81 mg PO DAILY [facility] Last Admin: 04/18/18 09:37 Dose: 81 mg Bisacodyl (Dulcolax Supp) 10 mg RECTAL DAILY PRN PRN Reason: SEVERE CONSITIPATION Digoxin (Lanoxin) 125 mcg PO DAILY [facility] Last Admin: 04/18/18 09:36 Dose: 125 mcg Furosemide (Lasix) 20 mg PO BID@0900,1800 [facility] Lactulose (Lactulose Liq) 30 ml PO DAILY PRN PRN Reason: SEVERE CONSITIPATION Last Admin: 04/17/18 13:08 Dose: 30 ml Lisinopril (Prinivil) 5 mg PO DAILY [facility] Metoprolol Tartrate (Lopressor) 12.5 mg PO BID [facility] Last Admin: 04/18/18 09:36 Dose: 12.5 mg Miscellaneous (Pill Splitter) 1 each OTHER ONCE [facility] Ondansetron HCl (Zofran Inj) 4 mg IV.PUSH Q6H PRN PRN Reason: NAUSEA OR VOMITING Pantoprazole Sodium (Protonix) 20 mg PO DAILY [facility] Last Admin: 04/18/18 09:37 Dose: 20 mg Pravastatin Sodium (Pravachol) 40 mg PO QPM [facility] Last Admin: 04/17/18 19:29 Dose: 40 mg Rivaroxaban (Xarelto) 20 mg PO DAILY [facility] Last Admin: 04/18/18 09:36 Dose: 20 mg Senna/Docusate Sodium (Yenni-Colace) 1 tab PO BID [facility] Last Admin: 04/18/18 09:39 Dose: Not Given Sennosides (Senokot) 17.2 mg PO Q12H PRN PRN Reason: Moderate Constipation Sodium Chloride (Ns Flush) 2 ml IV.FLUSH BID [facility] Last Admin: 04/18/18 09:39 Dose: 2 ml Sodium Chloride (Ns Flush) 2 ml IV.FLUSH UNSCH PRN PRN Reason: FLUSH AFTER USING IV ACCESS Last Admin: 04/17/18 19:39 Dose: 2 ml Tamsulosin HCl (Flomax) 0.4 mg PO DAILY [facility] Last Admin: 04/18/18 09:37 Dose: 0.4 mg Terazosin HCl (Hytrin) 1 mg PO BID [facility] Last Admin: 04/18/18 09:36 Dose: 1 mg Exam Vital signs: Vital Signs 04/17/18 16:00 04/17/18 16:55 04/17/18 20:00 Temperature 97.8 F 97.1 F L Pulse Rate 85 108 H 115 H Respiratory Rate 18 16 Blood Pressure 127/74 100/71 Pulse Oximetry 96 97 04/18/18 00:00 04/18/18 02:55 04/18/18 04:00 Temperature 97.8 F 97.8 F Pulse Rate 77 73 57 L Respiratory Rate 16 16 Blood Pressure 98/81 L 119/71 Pulse Oximetry 94 L 97 04/18/18 06:40 04/18/18 08:00 04/18/18 12:00 Temperature 97.4 F L 97.4 F L 97.2 F L Pulse Rate 47 L 100 H 93 H Respiratory Rate 20 18 18 Blood Pressure 142/83 H 109/82 101/58 L Pulse Oximetry 96 96 96 Intake & Output 04/17/18 04/18/18 04/18/18 18:59 06:59 18:59 Intake Total 480 / 480 240 / 240 Output Total 900 / 900 Balance -420 / -420 240 / 240 Weight 84.9 kg 83.9 kg Intake: Oral 480 / 480 240 / 240 Output: Urine 900 / 900 Other: Date of Last Bowel Movement 04/17/18 04/17/18 # Bowel Movements 1 Weight On Admission 83.8 kg - Constitutional no acute distress - Routine HEENT Exam Head: Present: normocephalic Eye: Present: PERRL ENT: Present: mucous membranes moist - Routine Neck Exam Present: full ROM - Routine Respiratory Exam Present: CTA bilaterally - Routine Cardiovascular Exam Present: murmur, irregular rhythm. Absent: gallop, rubs - Routine Abdominal Exam Present: soft - Routine Extremities Exam Present: full ROM, pulses intact, normal capillary refill. Absent: cyanosis, clubbing, edema - Routine Skin Exam Present: intact - Routine Neurological Exam Present: oriented X3 Results 04/17/18 07:12 04/17/18 07:12 Intake and Output 04/18/18 04/18/18 04/18/18 06:59 14:59 22:59 Intake Total 480 / 480 240 / 240 Output Total 900 / 900 Balance -420 / -420 240 / 240 Intake: Oral 480 / 480 240 / 240 Output: Urine 900 / 900 Other: Date of Last Bowel Movement 04/17/18 04/17/18 # Bowel Movements 1 Weight 83.9 kg Assessment and Plan - Assessment (1) Atrial fibrillation with RVR Code(s): I48.91 - Unspecified atrial fibrillation Status: Chronic (2) New onset of congestive heart failure Code(s): I50.9 - Heart failure, unspecified Status: Acute (3) Elevated troponin Code(s): R74.8 - Abnormal levels of other serum enzymes Status: Acute (4) Cardiomyopathy Code(s): I42.9 - Cardiomyopathy, unspecified Status: Acute (5) Hx TIA/stroke w/o resid Code(s): Z86.73 - Personal history of transient ischemic attack (TIA), and cerebral infarction without residual deficits Status: Chronic (6) Anxiety Code(s): F41.9 - Anxiety disorder, unspecified Status: Chronic (7) Hyperlipidemia Code(s): E78.5 - Hyperlipidemia, unspecified Status: Chronic - Plan 2D echo was already obtained which showed an EF 20-25%, left atrial moderate to severe dilation, right atrial mild to moderate dilation, moderate mitral valve regurgitation, diffuse calcification of the aortic valve, mild aortic valve regurgitation, severe tricuspid valve regurgitation and mild pulmonary valve regurgitation. Patient is currently on lisinopril 2.5 mg which will be increased to 5 mg p.o. daily for afterload reduction. Patient is currently on metoprolol and Lasix for rate control and diuresis. Will follow patient during his hospitalization. The patient was seen and evaluated by Dr. Laird who participated in care, management and decision-making. - Attending Attestation Patient seen and examined. I reviewed and agree with the evaluation and plan as presented. Continue and titrate tx for CHF. Echo with severe LV systolic dysfunction. Recommend to place Life Vest prior to discharge, ICD placement if no improvement of LV function after 3 months of GDMT. (4) Cardiomyopathy Qualifiers: Cardiomyopathy type: unspecified Qualified Code(s): I42.9 - Cardiomyopathy, unspecified (7) Hyperlipidemia Qualifiers: Hyperlipidemia type: unspecified Qualified Code(s): E78.5 - Hyperlipidemia, unspecified
[2018-04-18] MEDS: Furosemide 20 MG Tablet PO SCH (18:01)
[2018-04-19] MEDS: Pantoprazole Sodium 20 MG DR Tablet PO SCH (08:32)
[2018-04-19] MEDS: Metoprolol Tartrate 25 MG Tablet PO SCH ×2 (08:32→21:14)
[2018-04-19] MEDS: Digoxin 125 MCG Tablet PO SCH (08:32)
[2018-04-19] MEDS: Furosemide 20 MG Tablet PO SCH (08:32)
[2018-04-19] MEDS: Rivaroxaban 20 MG Tablet PO SCH (08:33)
[2018-04-19] MEDS: Senna/Docusate Sodium 8.6/50 MG Tablet PO SCH ×2 (08:33→21:15)
[2018-04-19 08:39] LABS: Calcium 8.7 mg/dL (8.5-10.1); Carbon Dioxide 30.6 meq/L (21.0-32.0); Potassium 3.8 meq/L (3.5-5.1)
[2018-04-19] MEDS ORDERED: Lisinopril 5 MG Tablet PO SCH ×2 (09:00)
--- NOTE | 2018-04-19 10:16 | P.DCO ---
- Home Health Nursing Order: Medical education, Signs/symptoms of disease process, CHF education Instructions: pt. going with Life vest - Case Management Consult Yes - Certification I have seen patient Javier Akhtar on 04/19/18. My clinical findings support the need for the requested home health care services because: new dx of cardiomyopathy, going home with life vest, Patient has SOB I certify that my clinical findings support that this patient is homebound because: Poor cardiac reserve
--- NOTE | 2018-04-19 11:19 | P.PNCA ---
Subjective Interval history: Pt denies any chest pain, palpitations, pressure, dizziness, edema or shortness of breath. Pt states he is ready to go home. Physical Exam Vital signs: Vital Signs 04/18/18 12:00 04/18/18 16:00 04/18/18 20:00 Temperature 97.2 F L 97.6 F 97.2 F L Pulse Rate 93 H 80 102 H Respiratory Rate 18 18 16 Blood Pressure 101/58 L 91/71 L 133/63 Pulse Oximetry 96 96 93 L 04/19/18 00:00 04/19/18 04:00 04/19/18 08:00 Temperature 97.9 F 97.5 F L 97.2 F L Pulse Rate 117 H 84 130 H Respiratory Rate 18 18 18 Blood Pressure 116/83 133/90 121/73 Pulse Oximetry 99 96 91 L Intake & Output 04/18/18 04/19/18 04/19/18 18:59 06:59 18:59 Intake Total 960 / 960 750 / 750 Balance 960 / 960 750 / 750 Weight 84.3 kg Intake: Oral 960 / 960 750 / 750 Other: # Voids 3 3 Date of Last Bowel Movement 04/17/18 # Bowel Movements 2 - Constitutional no acute distress - Routine HEENT Exam Head: Present: normocephalic Eye: Present: PERRL ENT: Present: mucous membranes moist - Routine Neck Exam Present: full ROM - Routine Respiratory Exam Present: CTA bilaterally - Routine Cardiovascular Exam Present: S1, S2, irregular rhythm. Absent: murmur, gallop, rubs - Routine Abdominal Exam Present: soft, normoactive bowel sounds - Routine Extremities Exam Present: full ROM, pulses intact, normal capillary refill. Absent: cyanosis, clubbing, edema - Routine Skin Exam Present: intact - Routine Neurological Exam Present: oriented X3 - Detailed Neurological Exam: Coma Scale Eye Opening: Spontaneous Verbal Response: Oriented Motor Response: Obey commands Naomi Coma Scale Total: 15 - Routine Psychiatric Exam Present: normal affect Assessment and Plan - Assessment (1) Atrial fibrillation with RVR Code(s): I48.91 - Unspecified atrial fibrillation Status: Chronic (2) New onset of congestive heart failure Code(s): I50.9 - Heart failure, unspecified Status: Acute (3) Elevated troponin Code(s): R74.8 - Abnormal levels of other serum enzymes Status: Acute (4) Cardiomyopathy Code(s): I42.9 - Cardiomyopathy, unspecified Status: Acute (5) Hx TIA/stroke w/o resid Code(s): Z86.73 - Personal history of transient ischemic attack (TIA), and cerebral infarction without residual deficits Status: Chronic (6) Anxiety Code(s): F41.9 - Anxiety disorder, unspecified Status: Chronic (7) Hyperlipidemia Code(s): E78.5 - Hyperlipidemia, unspecified Status: Chronic - Plan Ok to be discharged from cardiac standpoint after Life vest is in place. Recheck echo in 3 months. Patient is currently on metoprolol and Lasix for rate control, CHF and diuresis. Will follow patient during hospitalization and follow up in office in a few weeks. The patient was seen and evaluated by Dr. Laird who participated in care, management and decision-making. - Attending Attestation Patient seen and examined. I reviewed and agree with the evaluation and plan as presented. Place Life Vest. Continue tx for CHF. DC home. Will schedule cardiology followup. (4) Cardiomyopathy Qualifiers: Qualified Code(s): I42.9 - Cardiomyopathy, unspecified (7) Hyperlipidemia Qualifiers: Qualified Code(s): E78.5 - Hyperlipidemia, unspecified
--- NOTE | 2018-04-19 14:15 | P.PN ---
Subjective Interval history: ambulating in room, no sob, no cp, no leg edema. Slept well last night. Tele afib, HR 100s at times. Saw Dr. Laird, will be fitted with life vest. Physical Exam Vital signs: Vital Signs 04/18/18 16:00 04/18/18 20:00 04/19/18 00:00 Temperature 97.6 F 97.2 F L 97.9 F Pulse Rate 80 102 H 117 H Respiratory Rate 18 16 18 Blood Pressure 91/71 L 133/63 116/83 Pulse Oximetry 96 93 L 99 04/19/18 04:00 04/19/18 08:00 Temperature 97.5 F L 97.2 F L Pulse Rate 84 130 H Respiratory Rate 18 18 Blood Pressure 133/90 121/73 Pulse Oximetry 96 91 L Intake & Output 04/18/18 04/19/18 04/19/18 18:59 06:59 18:59 Intake Total 960 / 960 750 / 750 Balance 960 / 960 750 / 750 Weight 84.3 kg Intake: Oral 960 / 960 750 / 750 Other: # Voids 3 3 Date of Last Bowel Movement 04/17/18 # Bowel Movements 2 Narrative: GENERAL: Well-nourished, well-developed patient in no apparent distress. SKIN: Warm and dry. HEAD: Atraumatic. Normocephalic. EYES: Pupils equal and round. No scleral icterus. No injection or drainage. ENT: No nasal bleeding or discharge. Mucous membranes pink and moist. NECK: Trachea midline. No JVD. CARDIOVASCULAR: S1-S2, irregularly irregular. RESPIRATORY: Diminished at bases. GASTROINTESTINAL: Abdomen soft, non-tender, nondistended. Hepatic and splenic margins not palpable. MUSCULOSKELETAL: Extremities without clubbing, cyanosis, or edema. No obvious deformities. NEUROLOGICAL: Awake and alert. No obvious cranial nerve deficits. Motor grossly within normal limits. Five out of 5 muscle strength in the arms and legs. Normal speech. PSYCHIATRIC: Appropriate mood and affect; insight and judgment normal. Results - Labs CBC & Chem 7: 04/17/18 07:12 04/19/18 07:33 Laboratory Results - last 24 hr 04/19/18 07:33 Sodium 142 Potassium 3.8 Chloride 104 Carbon Dioxide 30.6 Anion Gap 7 BUN 19 H Creatinine 1.42 H Estimated GFR 49 L Random Glucose 108 H Calcium 8.7 Assessment and Plan - Assessment (1) Atrial fibrillation with RVR Code(s): I48.91 - Unspecified atrial fibrillation Status: Chronic (2) New onset of congestive heart failure Code(s): I50.9 - Heart failure, unspecified Status: Acute (3) Elevated troponin Code(s): R74.8 - Abnormal levels of other serum enzymes Status: Acute (4) Cardiomyopathy Code(s): I42.9 - Cardiomyopathy, unspecified Status: Acute (5) Hx TIA/stroke w/o resid Code(s): Z86.73 - Personal history of transient ischemic attack (TIA), and cerebral infarction without residual deficits Status: Chronic (6) Anxiety Code(s): F41.9 - Anxiety disorder, unspecified Status: Chronic (7) Hyperlipidemia Code(s): E78.5 - Hyperlipidemia, unspecified Status: Chronic (8) Acute systolic (congestive) heart failure Code(s): I50.21 - Acute systolic (congestive) heart failure Status: Acute - Plan 68-year-old male admitted secondary to A. fib RVR with new finding of CHF Atrial fibrillation with rapid ventricular response Elevated troponin Slight downward trend in troponin through time A. fib RVR along with CHF may have been the cause of his mild elevation in troponin Heart rate improved, 90s-100. Reported nonsustained VT, unable to find strip -Continue metoprolol 12.5 mg PO BID -Continue digoxin -Xarelto -appreciate card input. Acute systolic heart failure, new onset Shortness of breath and edema markedly improved. -Echo done, Ejection fraction approximately 20-25% -Cardiology following, pt. saw Dr. Storey was supposed to have STT on 04/25. -continue BB, Dig, Lasix -Creat up, decrease Lasix to 20 mg po daily -dc Lisinopril, to start Entresto on Tuesday. Will give Losartan 25 mg po x 1 tomorrow per card orders. -will need life vest x 4 months per card recommendations. Will arrange with CM Hx TIA, pt reports admission to [facility] for poss stroke. -was recently put on Xarelto Hyperlipidemia -Continue present treatment -Follow as an outpatient BPH GERD -Continue home medications DVT prophylaxis Xarelto Case management consultation for discharge planning, arrange LifeVest. Possible discharge today or tomorrow when Life vest is fitted D/W RN, CM, Dr. Laird/JESSICA Yanni (4) Cardiomyopathy Qualifiers: Cardiomyopathy type: unspecified Qualified Code(s): I42.9 - Cardiomyopathy, unspecified (7) Hyperlipidemia Qualifiers: Hyperlipidemia type: unspecified Qualified Code(s): E78.5 - Hyperlipidemia, unspecified
[2018-04-20] MEDS ORDERED: Furosemide 20 MG Tablet PO SCH (09:00)
[2018-04-20] MEDS: Senna/Docusate Sodium 8.6/50 MG Tablet PO SCH (09:12)
[2018-04-20] MEDS: Digoxin 125 MCG Tablet PO SCH (09:12)
[2018-04-20] MEDS: Rivaroxaban 20 MG Tablet PO SCH (09:12)
[2018-04-20] MEDS: Pantoprazole Sodium 20 MG DR Tablet PO SCH (09:13)
[2018-04-20] MEDS: Metoprolol Tartrate 25 MG Tablet PO SCH (09:13)
--- NOTE | 2018-04-20 09:26 | P.PN ---
Subjective Interval history: no cp, no sob, no leg swelling, was fitted with life vest yesterday. NO acute changes overnight. Physical Exam Vital signs: Vital Signs 04/19/18 12:00 04/19/18 16:00 04/19/18 20:00 Temperature 97.1 F L 97.4 F L 97.4 F L Pulse Rate 85 85 101 H Respiratory Rate 18 18 16 Blood Pressure 124/70 122/62 107/55 L Pulse Oximetry 94 L 95 96 04/20/18 00:00 04/20/18 04:00 Temperature 97.3 F L Pulse Rate 98 H 95 H Respiratory Rate 18 Blood Pressure 141/79 H Pulse Oximetry 97 Intake & Output 04/19/18 04/20/18 04/20/18 18:59 06:59 18:59 Intake Total 420 / 420 240 / 240 Output Total 1200 / 1200 Balance -780 / -780 240 / 240 Weight 86.5 kg Intake: Oral 420 / 420 240 / 240 Output: Urine 1200 / 1200 Other: # Voids 4 # Bowel Movements 0 0 Narrative: GENERAL: Well-nourished, well-developed patient in no apparent distress. SKIN: Warm and dry. HEAD: Atraumatic. Normocephalic. EYES: Pupils equal and round. No scleral icterus. No injection or drainage. ENT: No nasal bleeding or discharge. Mucous membranes pink and moist. NECK: Trachea midline. No JVD. CARDIOVASCULAR: S1-S2, irregularly irregular. RESPIRATORY: Diminished at bases. GASTROINTESTINAL: Abdomen soft, non-tender, nondistended. Hepatic and splenic margins not palpable. MUSCULOSKELETAL: Extremities without clubbing, cyanosis, or edema. No obvious deformities. NEUROLOGICAL: Awake and alert. No obvious cranial nerve deficits. Motor grossly within normal limits. Five out of 5 muscle strength in the arms and legs. Normal speech. PSYCHIATRIC: Appropriate mood and affect; insight and judgment normal. 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 fib RVR with new finding of CHF Atrial fibrillation with rapid ventricular response Elevated troponin Slight downward trend in troponin through time A. fib RVR along with CHF may have been the cause of his mild elevation in troponin Heart rate improved, 90s-100. Reported nonsustained VT, unable to find strip -Continue metoprolol 12.5 mg PO BID -Continue digoxin -continue Xarelto -appreciate card input. Acute systolic heart failure, new onset Shortness of breath and edema markedly improved. -Echo done, Ejection fraction approximately 20-25% -Cardiology following, pt. saw Dr. Storey was supposed to have STT on 04/25. -continue BB, Dig, Lasix -Creat up, decrease Lasix to 20 mg po daily -dc Lisinopril, to start Entresto on Tuesday. Will give Losartan 25 mg po x 1 today per card orders. -will need life vest x 4 months per card recommendations. Life vest in place. Hx TIA, pt reports admission to [facility] for poss stroke. -was recently put on Xarelto Hyperlipidemia -Continue present treatment -Follow as an outpatient BPH GERD -Continue home medications DVT prophylaxis Xarelto Case management consultation for discharge planning, arranged LifeVest and [facility] for nursing Cleared for dc by cardiology, d/w Dr. Laird Discharge home today with [facility] f/u Dr. Laird in 2 weeks f/u PCP 1 week Heart healthy diet Activity-as tolerated. Pt. to cut down on his work schedule. Instructed not to remove vest unless bathing. (4) Cardiomyopathy Qualifiers: Cardiomyopathy type: unspecified Qualified Code(s): I42.9 - Cardiomyopathy, unspecified (7) Hyperlipidemia Qualifiers: Hyperlipidemia type: unspecified Qualified Code(s): E78.5 - Hyperlipidemia, unspecified
--- NOTE | 2018-04-20 10:18 | P.PNCA ---
Subjective Interval history: Patient sitting in chair at this time. Patient denies any chest pain, pressure , palpitations, dizziness, edema or shortness of breath. Patient had LifeVest placed yesterday. Physical Exam Vital signs: Vital Signs 04/19/18 12:00 04/19/18 16:00 04/19/18 20:00 Temperature 97.1 F L 97.4 F L 97.4 F L Pulse Rate 85 85 101 H Respiratory Rate 18 18 16 Blood Pressure 124/70 122/62 107/55 L Pulse Oximetry 94 L 95 96 04/20/18 00:00 04/20/18 04:00 04/20/18 08:00 Temperature 97.3 F L 97.3 F L Pulse Rate 98 H 95 H 73 Respiratory Rate 18 16 Blood Pressure 141/79 H 119/65 Pulse Oximetry 97 100 Intake & Output 04/19/18 04/20/18 04/20/18 18:59 06:59 18:59 Intake Total 420 / 420 240 / 240 Output Total 1200 / 1200 Balance -780 / -780 240 / 240 Weight 86.5 kg Intake: Oral 420 / 420 240 / 240 Output: Urine 1200 / 1200 Other: # Voids 4 # Bowel Movements 0 0 - Constitutional no acute distress - Routine HEENT Exam Head: Present: normocephalic Eye: Present: PERRL ENT: Present: mucous membranes moist - Routine Neck Exam Present: full ROM - Routine Respiratory Exam Present: CTA bilaterally - Routine Cardiovascular Exam Present: S1, S2, irregular rhythm. Absent: gallop, rubs - Routine Abdominal Exam Present: soft, normoactive bowel sounds - Routine Extremities Exam Present: full ROM, pulses intact, normal capillary refill. Absent: cyanosis, clubbing, edema - Routine Skin Exam Present: intact - Routine Neurological Exam Present: oriented X3 - Detailed Neurological Exam: Coma Scale Eye Opening: Spontaneous Verbal Response: Oriented Motor Response: Obey commands Naomi Coma Scale Total: 15 - Routine Psychiatric Exam Present: normal affect Assessment and Plan - Assessment (1) Atrial fibrillation with RVR Code(s): I48.91 - Unspecified atrial fibrillation Status: Chronic (2) New onset of congestive heart failure Code(s): I50.9 - Heart failure, unspecified Status: Acute (3) Elevated troponin Code(s): R74.8 - Abnormal levels of other serum enzymes Status: Acute (4) Cardiomyopathy Code(s): I42.9 - Cardiomyopathy, unspecified Status: Acute (5) Hx TIA/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 Recheck echo in 3 months to assess left ventricular function. Continue current cardiac treatment plan for rate control and congestive heart failure. Will follow patient during hospitalization and follow up in office in a few weeks. The patient was seen and evaluated by Dr. Laird who participated in care, management and decision-making. - Attending Attestation Patient seen and examined. I reviewed and agree with the evaluation and plan as presented. Life Vest in place. Continue and titrate GDMT for CHF. DC home. Will schedule outpt f/u. (4) Cardiomyopathy Qualifiers: Cardiomyopathy type: unspecified Qualified Code(s): I42.9 - Cardiomyopathy, unspecified (7) Hyperlipidemia Qualifiers: Hyperlipidemia type: unspecified Qualified Code(s): E78.5 - Hyperlipidemia, unspecified
[2018-04-20 11:32] LABS: Calcium 8.7 mg/dL (8.5-10.1); Carbon Dioxide 28.7 meq/L (21.0-32.0); Potassium 3.6 meq/L (3.5-5.1)
--- NOTE | 2018-04-20 17:49 | P.DS ---
Date of admission: 04/15/18 19:07 Primary care physician: Physician [facility] Attending physician on discharge: Earlene Hull Anticipated date of discharge: 04/20/18 Brief History from admission: 68-year-old male with a past medical history significant for hyperlipidemia, BPH , GERD and atrial fibrillation anticoagulated on Xarelto presents the emergency department for evaluation of shortness of breath and right lower extremity swelling. The patient reports that he has had recently worsening shortness of breath that has been over the past 3 days. He reports that his symptoms worsen when he is lying flat or with exertion. He also endorses intermittent palpitations. He reports he has had to sleep in a recliner last night and was still unable to sleep secondary to his dyspnea. The patient reports that he saw his physician at the [facility] who placed him on Xarelto for atrial fibrillation and referred him to a count room clerk who is in [place]. Patient denies any known history of congestive heart failure. He also complains of a 2 day history of increased swelling to the right lower extremity. He reports his foot has been swollen for a long time but now his leg is also swollen. He denies any chest pain. No abdominal pain. No nausea/ vomiting/diarrhea. No fever/chills. No lateralizing signs/symptoms. DS: Diagnosis - Discharge Diagnosis (1) Atrial fibrillation with RVR Status: Chronic (2) New onset of congestive heart failure Status: Acute (3) Elevated troponin Status: Acute (4) Cardiomyopathy Status: Acute (5) Hx TIA/stroke w/o resid Status: Chronic (6) Anxiety Status: Chronic (7) Hyperlipidemia Status: Chronic (8) Acute systolic (congestive) heart failure Status: Acute DS: Medications - Discharge Medications Prescriptions: furosemide 20 mg PO DAILY 30 Days #30 tab metoprolol tartrate 12.5 mg PO BID 30 Days #15 tab pravastatin 40 mg PO QPM 30 Days #30 tab sacubitril-valsartan [Entresto] 1 tab PO BID 30 Days #60 tab DS: Summary Hospital Course: 68-year-old male admitted secondary to A. fib RVR with new finding of CHF During the course of the hospitalization, the following took place. Pt. admitted with : Atrial fibrillation with rapid ventricular response Elevated troponin Slight downward trend in troponin through A. fib RVR along with CHF may have been the cause of his mild elevation in troponin -cardiology consulted. Was continued on metoprolol 12.5 mg PO BID,digoxin -continued Xarelto Acute systolic heart failure, new onset Shortness of breath and edema markedly improved after diuresis. -cardiology evaluated. Echo ordered. Echo done, Ejection fraction approximately 20-25% -Per pt. he had seen Dr. Storey recently during hospitalization at [facility], was supposed to have STT on 04/25. -continued on BB, Dig, Lasix -started on lisinopril which was later discontinued. Cardiology recommended for the patient to start Entresto. -Life vest recommended x 3-4 month. CM consulted and rep came to apply and educate pt. Hx TIA, pt reports admission to [facility] for poss stroke recently. Had vision loss. -was recently put on Xarelto and was continued on it. Hyperlipidemia -Continued present treatment -Follow as an outpatient BPH GERD -Continued home medications DVT prophylaxis -continued Xarelto Case management consultation for discharge planning, arranged LifeVest and [facility] for nursing Cleared for dc by cardiology, d/w Dr. Laird. 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 Discharged home today with c f/u Dr. Laird in 2 weeks f/u PCP 1 week Heart healthy diet Activity-as tolerated. Pt. to cut down on his work schedule. Instructed not to remove vest unless bathing. - Time Spent with Patient Total time spent providing and/or coordinating discharge services: 35 MINUTES Greater than 30 minutes - Quality: VTE Deep Vein Thrombosis/Pulmonary Embolism Present on Admission: No Exam Vital signs: Vital Signs 04/19/18 20:00 04/20/18 00:00 04/20/18 04:00 Temperature 97.4 F L 97.3 F L Pulse Rate 101 H 98 H 95 H Respiratory Rate 16 18 Blood Pressure 107/55 L 141/79 H Pulse Oximetry 96 97 04/20/18 08:00 Temperature 97.3 F L Pulse Rate 73 Respiratory Rate 16 Blood Pressure 119/65 Pulse Oximetry 100 Intake & Output 04/19/18 04/20/18 04/20/18 18:59 06:59 18:59 Intake Total 420 / 420 240 / 240 Output Total 1200 / 1200 Balance -780 / -780 240 / 240 Weight 86.5 kg Intake: Oral 420 / 420 240 / 240 Output: Urine 1200 / 1200 Other: # Voids 4 # Bowel Movements 0 0 Results Procedures completed during hospitalization: NONE Labs on day of discharge: Labs from last 24 hours 04/20/18 10:08 Sodium 138 Potassium 3.6 Chloride 101 Carbon Dioxide 28.7 Anion Gap 8 BUN 17 Creatinine 1.34 H Estimated GFR 53 L Random Glucose 171 H Calcium 8.7 - Impressions ITS Impressions Chest X-Ray 04/15/18 17:21 CONCLUSION: Mild cardiomegaly and patchy areas of opacity in both lower lungs. Venous Doppler Study 04/15/18 17:21 CONCLUSION: 1. No sonographic evidence for right lower extremity DVT. Discharge Plan - Discharge Disposition Patient Disposition: /Home Health Service - Discharge Condition Condition: Stable - Discharge Order Discharge Orders: Discharge Order (Routine); Ordered 04/20/18 Ordered By: Toya Godinez - Discharge Details Anticipated Discharge Date: 04/20/18 Discharge Comment: wait for bmp results - Physicians Team Primary Care Provider: [facility] Attending Provider: Earlene Hull Other Providers: Paolo Ortiz MD ; Kerline Laird MD
== END 2018-04-20 11:19 | disposition home health service (06) ==
LOC: NEPE 15:44 → NEDA 19:07 → NEPGCP 22:55 → N04 04-17 15:15
PROVIDERS: ADMIT Internal Medicine; ATTEND Internal Medicine

== ENCOUNTER 2018-05-09 15:54 | Inpatient (IN) ==
[2018-05-09 18:20] LABS: Baso % (Auto) 0.4 % (0.0-2.0); Eos % (Auto) 0.2 % (0.0-4.0); Hemoglobin 15.4 gm/dL (13.0-17.0); Lymph # (Auto) 2.2 th/mm3 (1.0-4.8); Lymph % (Auto) 29.9 % (9.0-44.0); Mean Corpuscular HGB Conc 33.6 % (32.0-36.0); Mean Corpuscular Volume 89.4 fL (80.0-100.0); Mean Platelet Volume 10.5 fL (7.0-11.0); Mono # (Auto) 0.6 th/mm3 (0.0-0.9); Mono % (Auto) 8.2 % (0.0-8.0); Neut # (Auto) 4.5 th/mm3 (1.8-7.7); Neut % (Auto) 61.3 % (16.0-70.0); Platelet Count 208 th/mm3 (150-450); Red Blood Count 5.15 mil/mm3 (4.50-5.90); Red Cell Distribution Width 15.5 % (11.6-17.2); White Blood Count 7.3 th/mm3 (4.0-11.0)
--- NOTE | 2018-05-09 18:26 | XR ---
EXAM DATE: 05/09/2018 6:11 PM EDT AGE/SEX: 68 years / Male INDICATIONS: Short of breath. Complains of swelling of bilateral feet. CLINICAL DATA: This is the patient's initial encounter. Patient reports that signs and symptoms have been present for 1 day and indicates a pain score of 2/10. MEDICAL/SURGICAL HISTORY: None. None. COMPARISON: [facility], CHEST SINGLE AP, 06/21/2013. [facility], CHEST 1V SINGLE AP, 04/15/2018. . FINDINGS: Trace atelectasis of both bases. Also a suspected tiny pleural effusion on the right. Lungs are other lopez clear. No pneumothorax. Heart size stable, upper limits of normal. CONCLUSION: Trace bibasilar atelectasis and tiny right pleural effusion. Electronically signed by: Uriel Stark MD 05/09/2018 6:25 PM EDT
[2018-05-09 18:43] LABS: Alanine Aminotransferase 49 U/L (12-78); Alkaline Phosphatase 75 U/L (45-117); Troponin I 0.03 ng/mL (0.02-0.05)
--- NOTE | 2018-05-09 18:49 | ED ---
HPI General Chief complaint: Respiratory Symptoms Stated complaint: SOB/SWELLING/PHY SENT Time Seen by Provider: 05/09/18 17:23 Source: patient Mode of arrival: ambulatory Limitations: no limitations History of Present Illness HPI narrative: Is a 68-year-old man presents to the emergency room complaining of shortness of breath and lower extremity swelling. He is a history of A. fib , cardiomyopathy with reduced EF 20-25% range, insomnia, sent in from the [place]. Patient was discharged about 3 weeks ago from the hospital after being admitted with new onset cardiomyopathy. He states since discharge he has had some ongoing symptoms. Over the past several days and worsening bilateral lower extreme he has had persistent shortness of breath as well this been worsening over the past couple days. Some orthopnea. He has been compliant with his medications. [facility] that he gained 9 pounds since he was in their clinic on April 25. He states that he has not gained weight and attributes that to his life pack. Related Data Home Medications Medication Instructions Recorded Confirmed aspirin 81 mg PO DAILY 04/15/18 05/09/18 omeprazole 20 mg PO DAILY 04/15/18 05/09/18 dabigatran etexilate 150 mg PO BID 05/09/18 05/09/18 mirtazapine 15 mg PO DAILY 05/09/18 05/09/18 sacubitril-valsartan [Entresto] 1 tab PO BID 05/09/18 05/09/18 sertraline [Zoloft] 50 mg PO DAILY 05/09/18 05/09/18 Previous Rx's Medication Instructions Recorded digoxin 125 mcg PO DAILY #30 tab 05/14/18 losartan [Cozaar] 25 mg PO DAILY #30 tab 05/14/18 metoprolol tartrate 12.5 mg PO BID #60 tab 05/14/18 potassium chloride [Klor-Con 10] 10 meq PO BID #60 tab 05/14/18 torsemide 20 mg PO DAILY #30 tab 05/14/18 Allergies Allergy/AdvReac Type Severity Reaction Status Date / Time penicillin G Allergy Severe Rash Verified 05/09/18 17:48 warfarin [From Coumadin] Allergy Severe Rash Verified 05/09/18 17:48 Review of Systems ROS: all other systems reviewed are negative [facility] Family History Family History Other Family history normal Social History Social History Substance History: No History of Abuse Second Hand Smoke Exposure: No Smoking Status: Never smoker How Often Do You Have a Drink Containing Alcohol: Monthly or less Recent Travel in [facility] within the Last 8 Weeks: No Recent Out of Country Travel within the Last 8 Weeks: No Immunization History Tetanus Immunization: >5 Years Hx Influenza Vaccine This Season: No Exam Narrative Exam Narrative: GENERAL: 5-year-old man, generally well-appearing, no acute distress. SKIN: Focused skin assessment warm/dry. Decreased skin turgor. HEAD: Atraumatic. Normocephalic. EYES: Pupils equal and round. No scleral icterus. No injection or drainage. ENT: No nasal bleeding or discharge. Mucous membranes pink and moist. NECK: Trachea midline. No JVD. CARDIOVASCULAR: Regular rate and rhythm. No murmur appreciated. RESPIRATORY: No accessory muscle use. Clear to auscultation. Breath sounds equal bilaterally. GASTROINTESTINAL: Abdomen soft, non-tender, nondistended. Hepatic and splenic margins not palpable. MUSCULOSKELETAL: No obvious deformities. 1+ edema bilateral lower extremities. NEUROLOGICAL: Awake and alert. No obvious cranial nerve deficits. Motor grossly within normal limits. Normal speech. PSYCHIATRIC: Appropriate mood and affect; insight and judgment normal. Course Consultations Consultation #1: The patient's case including history, pertinent physical examination findings, and laboratory studies were discussed with radha Stein for Dr. gordon. He recommended that as the patient's heart rate continues to be elevated that the patient be started on a Cardizem drip, especially with any minimal activity such as eating his heart rate has gone up to as high as the 140s while I was discussing the patient's results with him in spite of already being given Cardizem 15 mg IV. He also recommends that the patient be diuresed. The patient will be admitted to the hospital for continued evaluation, further rate control. Time: 19:41 Consultation #2: The patient's case including history, pertinent physical examination findings, and laboratory studies were discussed with . It was agreed that the patient would be admitted to the hospitalist service. Initial Documented Vital Signs Temperature 97.9 F 05/09/18 17:30 Pulse Rate 123 H 05/09/18 17:30 Respiratory Rate 22 05/09/18 17:30 Blood Pressure 116/72 05/09/18 17:30 Pulse Oximetry 98 05/09/18 17:30 Last Documented Vital Signs Temperature 98.1 F 05/14/18 07:00 Pulse Rate 108 H 05/14/18 10:00 Respiratory Rate 20 05/14/18 07:00 Blood Pressure 135/75 05/14/18 07:00 Pulse Oximetry 96 05/14/18 07:00 Sign Out Sign Out Data: Patient Sign Out occurred on 05/09/18 at 19:21. Patient's care was discussed, and care was transferred from Lasha Ruiz MD to Mary Ortiz MD. Sign Out Comment: 68-year-old man, worsening shortness of breath with some worsening edema, CHF versus A. fib with cardiomyopathy or less likely renal failure. Rate controlled. Edema is a little bit asymmetric. Doubt PE or DVT. Follow-up on labs, x-ray, reassess, observation versus close outpatient follow -up. Last updated by Lasha Ruiz MD at 05/09/18 19:21 Post-Handoff Eval: The patient's case was checked out to me by at the conclusion of his shift. The patient presented with worsening shortness of breath and worsening lower extremity edema with weight gain. The patient has a history of CHF, atrial fibrillation, history of cardiomyopathy. The patient is followed by Dr. Laird for his cardiac care. The patient had an EKG done during his initial evaluation that showed A. fib with RVR with a heart rate of 114. The patient's highest documented heart rate was up to 128 in the record which could be contributing to some of the patient's dyspnea with exertion. The patient was given a dose of Cardizem 15 mg IV for further rate control. The patient is currently on metoprolol 12.5 mg twice daily. The patient reported some increased swelling in the right leg compared to the left. The patient is anticoagulated on dabigatran, therefore the likelihood of DVT is low, however given his asymmetry an ultrasound will be ordered to further evaluate. The patient's diagnostic studies are remarkable for normal white count of 7.3 hemoglobin 15.4, platelets 208 with 8.2 monocytes, PT 12.5, INR 1.2, PTT 25.9, chemistry is remarkable for a BUN of 26, creatinine 1.58 which is increased compared to his prior creatinine of 1.34, glucose 108, total bilirubin 1.9 which is stable compared to prior bilirubin levels, albumin 3.3, BNP 2642 which is compared to his last BNP of 1142. A chest x-ray shows trace bibasilar atelectasis and a tiny right pleural effusion. From reviewing the record the patient is on Lasix 20 mg once a day for diuresis. I spoke to Dr. Stein, covering for Dr. Laird regarding this patient's case. He recommends further rate control given the patient's A. fib with RVR I started the patient on a Cardizem drip. He also recommends additional diuresis. The patient's results were discussed with the patient, including the plan of care. I explained that further testing and/ or monitoring is indicated based on the patient's history, examination, and/ or laboratory findings. Therefore, I recommended admission for additional evaluation. The patient expressed understanding and was agreeable with this plan. The patient was admitted to the hospital in guarded condition and sent to a bed under the care of the [facility] service. Medical Decision Making MDM Narrative Medical decision making narrative: Well-appearing 68-year-old man, presents to the ED with some lower extremity was euvolemic her volume down. He has no JVD. He has decreased skin turgor. This edema may be due to liver disease, kidney disease, or his A. fib primarily. We will plan on rate control the A. fib. Will hold off diuresis until we get x-ray and laboratory evaluation. Patient will likely need to be admitted for observation for further evaluation. Medical Screen Exam Complete: Yes Emergency Medical Condition: Yes Lab Data Result diagrams: 05/09/18 18:00 05/12/18 05:53 Lab Results 05/09/18 05/09/18 05/09/18 Range/Units 17:45 18:00 18:00 WBC 7.3 (4.0-11.0) th/mm3 RBC 5.15 (4.50-5.90) mil/mm3 Hgb 15.4 (13.0-17.0) gm/dL Hct 46.0 (39.0-51.0) % MCV 89.4 (80.0-100.0) fL MCH 30.0 (27.0-34.0) pg MCHC 33.6 (32.0-36.0) % RDW 15.5 (11.6-17.2) % Plt Count 208 (150-450) th/mm3 MPV 10.5 (7.0-11.0) fL Neut % (Auto) 61.3 (16.0-70.0) % Lymph % (Auto) 29.9 (9.0-44.0) % [place] % (Auto) 8.2 H (0.0-8.0) % Eos % (Auto) 0.2 (0.0-4.0) % Baso % (Auto) 0.4 (0.0-2.0) % Neut # (Auto) 4.5 (1.8-7.7) th/mm3 Lymph # (Auto) 2.2 (1.0-4.8) th/mm3 [place] # (Auto) 0.6 (0.0-0.9) th/mm3 Eos # (Auto) 0.0 (0.0-0.4) th/mm3 Baso # (Auto) 0.0 (0.0-0.2) th/mm3 WBC Differential . Differential Comment Auto diff final Sodium 141 (136-145) meq/L Potassium 4.3 (3.5-5.1) meq/L Chloride 105 (98-107) meq/L Carbon Dioxide 23.9 (21.0-32.0) meq/L Anion Gap 12 (5-15) meq/L BUN 26 H (7-18) mg/dL Creatinine 1.58 H (0.60-1.30) mg/dL Estimated GFR 44 L (>89) mL/min Random Glucose 108 H (74-106) mg/dL Calcium 8.6 (8.5-10.1) mg/dL Magnesium 2.1 (1.5-2.5) mg/dL Total Bilirubin 1.9 H (0.2-1.0) mg/dL AST 37 (15-37) U/L ALT 49 (12-78) U/L Alkaline Phosphatase 75 (45-117) U/L Troponin I 0.03 (0.02-0.05) ng/mL B-Natriuretic Peptide (0-100) pg/mL Total Protein 7.0 (6.4-8.2) g/dL Albumin 3.3 L (3.4-5.0) g/dL Digoxin 0.1 L (0.8-2.0) ng/mL 05/09/18 05/10/18 05/11/18 Range/Units 18:00 04:19 04:23 WBC (4.0-11.0) th/mm3 RBC (4.50-5.90) mil/mm3 Hgb (13.0-17.0) gm/dL Hct (39.0-51.0) % MCV (80.0-100.0) fL MCH (27.0-34.0) pg MCHC (32.0-36.0) % RDW (11.6-17.2) % Plt Count (150-450) th/mm3 MPV (7.0-11.0) fL Neut % (Auto) (16.0-70.0) % Lymph % (Auto) (9.0-44.0) % [place] % (Auto) (0.0-8.0) % Eos % (Auto) (0.0-4.0) % Baso % (Auto) (0.0-2.0) % Neut # (Auto) (1.8-7.7) th/mm3 Lymph # (Auto) (1.0-4.8) th/mm3 [place] # (Auto) (0.0-0.9) th/mm3 Eos # (Auto) (0.0-0.4) th/mm3 Baso # (Auto) (0.0-0.2) th/mm3 WBC Differential Differential Comment Sodium 145 142 (136-145) meq/L Potassium 4.0 3.7 (3.5-5.1) meq/L Chloride 107 106 (98-107) meq/L Carbon Dioxide 27.9 25.8 (21.0-32.0) meq/L Anion Gap 10 10 (5-15) meq/L BUN 25 H 23 H (7-18) mg/dL Creatinine 1.48 H 1.29 (0.60-1.30) mg/dL Estimated GFR 47 L 55 L (>89) mL/min Random Glucose 103 108 H (74-106) mg/dL Calcium 8.4 L 8.7 (8.5-10.1) mg/dL Magnesium (1.5-2.5) mg/dL Total Bilirubin (0.2-1.0) mg/dL AST (15-37) U/L ALT (12-78) U/L Alkaline Phosphatase (45-117) U/L Troponin I (0.02-0.05) ng/mL B-Natriuretic Peptide 2642 H (0-100) pg/mL Total Protein (6.4-8.2) g/dL Albumin (3.4-5.0) g/dL Digoxin (0.8-2.0) ng/mL 05/12/18 Range/Units 05:53 WBC (4.0-11.0) th/mm3 RBC (4.50-5.90) mil/mm3 Hgb (13.0-17.0) gm/dL Hct (39.0-51.0) % MCV (80.0-100.0) fL MCH (27.0-34.0) pg MCHC (32.0-36.0) % RDW (11.6-17.2) % Plt Count (150-450) th/mm3 MPV (7.0-11.0) fL Neut % (Auto) (16.0-70.0) % Lymph % (Auto) (9.0-44.0) % [place] % (Auto) (0.0-8.0) % Eos % (Auto) (0.0-4.0) % Baso % (Auto) (0.0-2.0) % Neut # (Auto) (1.8-7.7) th/mm3 Lymph # (Auto) (1.0-4.8) th/mm3 [place] # (Auto) (0.0-0.9) th/mm3 Eos # (Auto) (0.0-0.4) th/mm3 Baso # (Auto) (0.0-0.2) th/mm3 WBC Differential Differential Comment Sodium 143 (136-145) meq/L Potassium 4.0 (3.5-5.1) meq/L Chloride 104 (98-107) meq/L Carbon Dioxide 31.1 (21.0-32.0) meq/L Anion Gap 8 (5-15) meq/L BUN 22 H (7-18) mg/dL Creatinine 1.29 (0.60-1.30) mg/dL Estimated GFR 55 L (>89) mL/min Random Glucose 96 (74-106) mg/dL Calcium 8.7 (8.5-10.1) mg/dL Magnesium (1.5-2.5) mg/dL Total Bilirubin (0.2-1.0) mg/dL AST (15-37) U/L ALT (12-78) U/L Alkaline Phosphatase (45-117) U/L Troponin I (0.02-0.05) ng/mL B-Natriuretic Peptide (0-100) pg/mL Total Protein (6.4-8.2) g/dL Albumin (3.4-5.0) g/dL Digoxin (0.8-2.0) ng/mL Imaging Data Radiologist's impression: Chest X-Ray 05/09/18 17:44 CONCLUSION: Trace bibasilar atelectasis and tiny right pleural effusion. Venous Doppler Study 05/09/18 19:17 CONCLUSION: Negative study. No venous thrombosis of the right lower extremity. Discharge Plan Discharge Disposition Patient Disposition: 30 Still Patient Discharge Condition Condition: Good Discharge Order Discharge Orders: Discharge Order (Routine); Ordered 05/14/18 Ordered By: Fidencio Carvalho Discharge Details Diagnosis: Atrial fibrillation with RVR, CHF exacerbation Physicians Team ED Provider: Mary Ortiz Primary Care Provider: [facility]ician 's Attending Provider: Fidencio Carvalho Other Providers: Lee Stein Status ED Status: Left Department Discharge Information Discharge Date/Time: 05/10/18 00:03
[2018-05-09 18:58] LABS: Digoxin 0.1 ng/mL (0.8-2.0)
[2018-05-09 19:04] LABS: Magnesium 2.1 mg/dL (1.5-2.5)
[2018-05-09 19:04] LABS: Albumin 3.3 g/dL (3.4-5.0); Anion Gap 12 meq/L (5-15); Aspartate Aminotransferase 37 U/L (15-37); Blood Urea Nitrogen 26 mg/dL (7-18); Calcium 8.6 mg/dL (8.5-10.1); Carbon Dioxide 23.9 meq/L (21.0-32.0); Chloride 105 meq/L (98-107); Glomerular Filtration Rate 44 mL/min (>89); Glucose,Random 108 mg/dL (74-106); Potassium 4.3 meq/L (3.5-5.1); Sodium 141 meq/L (136-145)
[2018-05-09] MEDS ORDERED: dilTIAZem Inj 125 MG in Sodium Chlor 0.9% Inj 100 ML IV.CONT PRN (19:47)
--- NOTE | 2018-05-09 22:12 | US ---
EXAM DATE: 05/09/2018 10:08 PM EDT AGE/SEX: 68 years / Male INDICATIONS: Increasing lower extremity edema with shortness of breath. CLINICAL DATA: This is the patient's subsequent encounter. Patient reports that signs and symptoms h ave been present for 3 days and indicates a pain score of 5/10. MEDICAL/SURGICAL HISTORY: Gastroesophageal reflux disease. Hypercholesterolemia. Atrial fibril lation. High cholesterol. Prostate enlargement. Systolic heart failure. Tonsillectomy. COMPARISON: [facility] [place], US VENOUS DOPPLER LEG RIGHT, 04/15/2018. . TECHNIQUE: Venous ultrasound of both lower extremities was performed from the inguinal ligament to t he proximal calf. Real-time, color Doppler and spectral tracing, compression and augmentation techni ques were used. FINDINGS: Normal compression of the deep venous system from the inguinal region to the proximal calf . No echogenic clot is seen. Normal response of the venous system to augmentation and respiration. CONCLUSION: Negative study. No venous thrombosis of the right lower extremity. Electronically signed by: Uriel Stark MD 05/09/2018 10:11 PM EDT
--- NOTE | 2018-05-09 22:35 | P.HP ---
History of Present Illness Service: [facility] Primary Care Physician: [facility] History of Present Illness: 68-year-old male with a past medical history significant for CHF (EF of 20-25% on echo 04/16/18), hypertension, hyperlipidemia, atrial fibrillation anticoagulated on Pradaxa and GERD presents to the emergency department for the evaluation of bilateral lower extremity edema, shortness of breath and atrial fibrillation with rapid ventricular response. The patient reports that his feet began swelling approximately 2 days ago. He states his shortness of breath started about that time and has worsened over the past 2 days. He was seen at the NH today and was sent to the emergency department for further evaluation as he was in A. fib with RVR and had gained 9 pounds since his last appointment. He denies any chest pain. No abdominal pain. No nausea/vomiting/ diarrhea. No fever/chills. No lateralizing signs/symptoms. Inpatient Certification: I certify that the inpatient services were ordered in accordance with Medicare regulations governing the order. This includes certification that hospital inpatient services are reasonable and necessary and in the case of services not specified as inpatient-only under 42 CFR 419.22(n), that they are appropriately provided as inpatient services in accordance to with the 2-midnight benchmark under 43 CFR 412.3(e) Estimated Total Length of Stay (Days): 2 Plans for Post Hospital Care: Home Review of Systems All other systems reviewed negative except as stated in HPI PMFSH - History History Provided By: Patient - Medical History Medical History: Medical History (Last Reviewed 05/09/18 @ 22:30 by Queenie Cole MD) Systolic heart failure Atrial fibrillation GERD (gastroesophageal reflux disease) High cholesterol Prostate enlargement - Surgical History Surgical History: Surgical History (Last Reviewed 05/09/18 @ 22:30 by Queenie Cole MD) Hx of tonsillectomy - Family History Family History: Family History (Last Reviewed 05/09/18 @ 22:30 by Queenie Cole MD) Other Family history normal - Tobacco History Second Hand Smoke Exposure: No Smoking Status: Never smoker - Alcohol History How Often Do You Have a Drink Containing Alcohol: Never - Substance Use History Substance History: No History of Abuse - Travel History Recent Travel in the [place] Within the Last 8 Weeks: No Recent Travel Out of the Country Within the Last 8 Weeks: No - Immunization History Tetanus Immunization: >5 Years Hx Influenza Vaccine This Season: No Medications and Allergies Active Medications: Active Medications Diltiazem HCl 125 mg/ Sodium (Chloride) 125 mls @ 5 mls/hr IV.CONT TITRATE PRN ; Protocol PRN Reason: Per Protocol Last Admin: 05/09/18 22:03 Dose: 5 mg/hr, 5 mls/hr Allergies Allergy/AdvReac Type Severity Reaction Status Date / Time penicillin G Allergy Severe Rash Verified 05/09/18 17:48 warfarin [From Coumadin] Allergy Severe Rash Verified 05/09/18 17:48 Home Medications Medication Instructions Recorded Confirmed Type aspirin 81 mg PO DAILY 04/15/18 05/09/18 History omeprazole 20 mg PO DAILY 04/15/18 05/09/18 History dabigatran etexilate 150 mg PO BID 05/09/18 05/09/18 History mirtazapine 15 mg PO DAILY 05/09/18 05/09/18 History sacubitril-valsartan [Entresto] 1 tab PO BID 05/09/18 05/09/18 History sertraline [Zoloft] 50 mg PO DAILY 05/09/18 05/09/18 History Exam Vital signs: Vital Signs 05/09/18 17:30 05/09/18 17:44 05/09/18 19:15 Temperature 97.9 F Pulse Rate 123 H 128 H 104 H Respiratory Rate 22 15 Blood Pressure 116/72 111/84 Pulse Oximetry 98 97 96 05/09/18 22:00 Temperature Pulse Rate 120 H Respiratory Rate 12 Blood Pressure 133/85 Pulse Oximetry 96 Intake & Output 05/09/18 05/09/18 05/10/18 06:59 18:59 06:59 Weight 89.811 kg Narrative: Gen.: No acute distress Head: Normocephalic. Atraumatic. EENT: Pupils equal round and reactive to light. Nose without drainage. Airway intact. Throat without injection. Cardiovascular: Tachycardic. Irregularly irregular rhythm. No murmurs, rubs or gallops. Respiratory: Lungs clear to auscultation bilaterally. No wheezes or rhonchi. Abdomen: Soft, nontender, nondistended. No peritoneal signs. Musculoskeletal: No gross deformities. 1+ pitting edema in the bilateral lower extremities. Skin: No obvious rashes or erythema. Neuro: Sensory and motor grossly intact. Cranial nerves II through XII grossly intact. Results - Labs CBC & Chem 7: 05/09/18 18:00 05/09/18 18:00 Labs: Laboratory Results - last 24 hr 05/09/18 05/09/18 05/09/18 17:45 18:00 18:00 WBC 7.3 RBC 5.15 Hgb 15.4 Hct 46.0 MCV 89.4 MCH 30.0 MCHC 33.6 RDW 15.5 Plt Count 208 MPV 10.5 Neut % (Auto) 61.3 Lymph % (Auto) 29.9 [place] % (Auto) 8.2 H Eos % (Auto) 0.2 Baso % (Auto) 0.4 Neut # (Auto) 4.5 Lymph # (Auto) 2.2 [place] # (Auto) 0.6 Eos # (Auto) 0.0 Baso # (Auto) 0.0 WBC Differential . Differential Comment Auto diff final Sodium 141 Potassium 4.3 Chloride 105 Carbon Dioxide 23.9 Anion Gap 12 BUN 26 H Creatinine 1.58 H Estimated GFR 44 L Random Glucose 108 H Calcium 8.6 Magnesium 2.1 Total Bilirubin 1.9 H AST 37 ALT 49 Alkaline Phosphatase 75 Troponin I 0.03 B-Natriuretic Peptide Total Protein 7.0 Albumin 3.3 L Digoxin 0.1 L 05/09/18 18:00 WBC RBC Hgb Hct MCV MCH MCHC RDW Plt Count MPV Neut % (Auto) Lymph % (Auto) [place] % (Auto) Eos % (Auto) Baso % (Auto) Neut # (Auto) Lymph # (Auto) [place] # (Auto) Eos # (Auto) Baso # (Auto) WBC Differential Differential Comment Sodium Potassium Chloride Carbon Dioxide Anion Gap BUN Creatinine Estimated GFR Random Glucose Calcium Magnesium Total Bilirubin AST ALT Alkaline Phosphatase Troponin I B-Natriuretic Peptide 2642 H Total Protein Albumin Digoxin - Imaging Impressions Chest X-Ray 05/09/18 17:44 CONCLUSION: Trace bibasilar atelectasis and tiny right pleural effusion. Venous Doppler Study 05/09/18 19:17 CONCLUSION: Negative study. No venous thrombosis of the right lower extremity. Caprini VTE Risk Assessment Caprini VTE Risk Assessment: Moderate/High Risk (score >= 2) Caprini Risk Assessment Model: Point Value = 1 Point Value = 2 Point Value = 3 Point Value = 5 Age 41-60 Minor surgery BMI > 25 kg/m2 Swollen legs Varicose veins or History of unexplained or recurrent spontaneous Oral contraceptives or hormone replacement Sepsis (< 1 month) Serious lung disease, including pneumonia (< 1 month) Abnormal pulmonary function Acute myocardial infarction Congestive heart failure (< 1 month) History of inflammatory bowel disease Medical patient at bed rest Age 61-74 Arthroscopic surgery Major open surgery (> 45 min) Laparoscopic surgery (> 45 min) Malignancy Confined to bed (> 72 hours) Immobilizing plaster cast Central venous access Age >= 75 History of VTE Family history of VTE Factor V Leiden Prothrombin [id number] Lupus anticoagulant Anticardiolipin antibodies Elevated serum homocysteine Heparin-induced thrombocytopenia Other congenital or acquired thrombophilia Stroke (< 1 month) Elective arthroplasty Hip, pelvis, or leg fracture Acute spinal cord injury (< 1 month) Prophylaxis Regimen: Total Risk Factor Score Risk Level Prophylaxis Regimen 0-1 Low Early ambulation 2 Moderate Order ONE of the following: *Sequential Compression Device (SCD) *Heparin 5000 units SQ BID 3-4 Higher Order ONE of the following medications: *Heparin 5000 units SQ TID *Enoxaparin/Lovenox 40 mg SQ daily (WT < 150 kg, CrCl > 30 mL/min) *Enoxaparin/Lovenox 30 mg SQ daily (WT < 150 kg, CrCl > 10-29 mL/min) *Enoxaparin/Lovenox 30 mg SQ BID (WT < 150 kg, CrCl > 30 mL/min) AND/OR *Sequential Compression Device (SCD) 5 or more Highest Order ONE of the following medications: *Heparin 5000 units SQ TID (Preferred with Epidurals) *Enoxaparin/Lovenox 40 mg SQ daily (WT < 150 kg, CrCl > 30 mL/min) *Enoxaparin/Lovenox 30 mg SQ daily (WT < 150 kg, CrCl > 10-29 mL/min) *Enoxaparin/Lovenox 30 mg SQ BID (WT < 150 kg, CrCl > 30 mL/min) AND *Sequential Compression Device (SCD) Assessment and Plan - Plan Assessment/plan: 1. Atrial fibrillation with rapid ventricular response EKG significant for A. fib with RVR, personally reviewed Diltiazem bolus and drip Continue home metoprolol Continue anticoagulation with Pradaxa Patient's no experience, Dr. gordon consulted, appreciate recommendations 2. CHF exacerbation Last echo on 04/16/18 showed an EF of 20-25% BNP 2642 Worsening dyspnea on exertion and bilateral lower extremity edema Chest x-ray shows a tiny right pleural effusion, personally reviewed IV Lasix Cardiology consulted as above 3. Hypertension/hyperlipidemia/GERD Continue home medications 4. Acute renal insufficiency Pending 1.58, baseline 1.1 Holding IV fluids given patient's volume overload status Monitor renal function FEN Heart healthy diet Electrolytes: Monitor and replete as needed Pradaxa
[2018-05-10 05:09] LABS: Calcium 8.4 mg/dL (8.5-10.1); Carbon Dioxide 27.9 meq/L (21.0-32.0)
[2018-05-10] MEDS: Sertraline 50 MG Tablet PO SCH (08:26)
[2018-05-10] MEDS: Mirtazapine 15 MG Tablet PO SCH (08:26)
[2018-05-10] MEDS: Pantoprazole Sodium 20 MG DR Tablet PO SCH (08:26)
[2018-05-10] MEDS ORDERED: Metoprolol Tartrate 25 MG Tablet PO SCH (09:00)
--- NOTE | 2018-05-10 10:57 | P.CONCA ---
History of Present Illness Service: Cardiology Consult date: 05/10/18 Requesting Physician: Queenie Cole Reason for Consult: Afib RVR Primary Care Provider: Physician [facility] Chief Complaint: left lower extremity edema History of Present Illness: The patient is a 68-year-old male known to our hospital by Dr. Laird with a cardiac history of new cardiomyopathy etiology undetermined, moderate mitral regurgitation, atrial fibrillation anticoagulated on Pradaxa, hypertension, hyperlipidemia, and chronic kidney disease. The patient presented to the hospital for progressively worsening right lower extremity edema. Patient admits to increasing shortness of breath with exertion, but denies orthopnea. He admits to increased cough. On admission, the patient was noted to have atrial fibrillation with rapid ventricular response. Ischemic workup was negative. BNP is markedly elevated without evidence of obvious congestive heart failure on chest x-ray. Patient is interested which falsely elevates the BNP. Right lower extremity Doppler is negative for DVT. Since admission, the patient was started on a Cardizem drip. He is currently rate controlled. He had short runs of ventricular escape rhythm overnight. IV diuresis was initiated. Right lower extremity edema is improving. The patient is anxious to go home. The patient was discharged with a LifeVest on prior hospitalization. The patient admits that he is not using his LifeVest continuously. He does not have it here at the hospital. No VT on telemetry. Review of Systems All other systems reviewed negative except as stated in HPI PMFSH - History History Provided By: Patient - Medical History Medical History: Medical History (Last Reviewed 05/09/18 @ 22:30 by Queenie Cole MD) Systolic heart failure Atrial fibrillation GERD (gastroesophageal reflux disease) High cholesterol Prostate enlargement - Surgical History Surgical History: Surgical History (Last Reviewed 05/09/18 @ 22:30 by Queenie Cole MD) Hx of tonsillectomy - Family History Family History: Family History (Last Reviewed 05/09/18 @ 22:30 by Queenie Cole MD) Other Family history normal - Tobacco History Second Hand Smoke Exposure: No Smoking Status: Never smoker - Alcohol History How Often Do You Have a Drink Containing Alcohol: Monthly or less - Substance Use History Substance History: No History of Abuse - Travel History Recent Travel in the [place] Within the Last 8 Weeks: No Recent Travel Out of the Country Within the Last 8 Weeks: No - Immunization History Tetanus Immunization: >5 Years Hx Influenza Vaccine This Season: No Medications and Allergies Allergies Allergy/AdvReac Type Severity Reaction Status Date / Time penicillin G Allergy Severe Rash Verified 05/09/18 17:48 warfarin [From Coumadin] Allergy Severe Rash Verified 05/09/18 17:48 Home Medications Medication Instructions Recorded Confirmed Type aspirin 81 mg PO DAILY 04/15/18 05/09/18 History omeprazole 20 mg PO DAILY 04/15/18 05/09/18 History dabigatran etexilate 150 mg PO BID 05/09/18 05/09/18 History mirtazapine 15 mg PO DAILY 05/09/18 05/09/18 History sacubitril-valsartan [Entresto] 1 tab PO BID 05/09/18 05/09/18 History sertraline [Zoloft] 50 mg PO DAILY 05/09/18 05/09/18 History Active Medications: Active Medications Aspirin (Aspirin Chew) 81 mg PO DAILY [facility] Last Admin: 05/10/18 08:26 Dose: 81 mg Carvedilol (Coreg) 3.125 mg PO ONCE ONE Stop: 05/10/18 10:44 Carvedilol (Coreg) 6.25 mg PO BID [facility] Dabigatran (Pradaxa) 150 mg PO BID [facility] Last Admin: 05/10/18 08:26 Dose: 150 mg Furosemide (Lasix Inj) 40 mg IV.PUSH BID@0900,1800 [facility] Last Admin: 05/10/18 08:25 Dose: 40 mg Diltiazem HCl 125 mg/ Sodium (Chloride) 125 mls @ 5 mls/hr IV.CONT TITRATE PRN ; Protocol PRN Reason: Per Protocol Last Titration: 05/10/18 02:49 Dose: 5 mg/hr, 5 mls/hr Mirtazapine (Remeron) 15 mg PO DAILY [facility] Last Admin: 05/10/18 08:26 Dose: 15 mg Miscellaneous (Pill Splitter) 1 each OTHER UNSCH PRN PRN Reason: PILL SPIT Pantoprazole Sodium (Protonix) 20 mg PO DAILY [facility] Last Admin: 05/10/18 08:26 Dose: 20 mg Pravastatin Sodium (Pravachol) 40 mg PO HS [facility] Sacubitril/Valsartan (Entresto 24 Mg/26 Mg Tablet) 1 tab PO BID [facility] Last Admin: 05/10/18 08:27 Dose: 1 tab Sertraline HCl (Zoloft) 50 mg PO DAILY [facility] Last Admin: 05/10/18 08:26 Dose: 50 mg Sodium Chloride (Ns Flush) 2 ml IV.FLUSH BID [facility] Last Admin: 05/10/18 08:27 Dose: 2 ml Sodium Chloride (Ns Flush) 2 ml IV.FLUSH UNSCH PRN PRN Reason: FLUSH AFTER USING IV ACCESS Exam Vital signs: Vital Signs 05/09/18 17:30 05/09/18 17:44 05/09/18 19:15 Temperature 97.9 F Pulse Rate 123 H 128 H 104 H Respiratory Rate 22 15 Blood Pressure 116/72 111/84 Pulse Oximetry 98 97 96 05/09/18 22:00 05/09/18 23:07 05/10/18 00:30 Temperature 98.7 F Pulse Rate 120 H 105 H 67 Respiratory Rate 12 18 16 Blood Pressure 133/85 116/66 109/69 Pulse Oximetry 96 96 95 05/10/18 00:41 05/10/18 01:00 05/10/18 02:00 Temperature Pulse Rate 67 80 69 Respiratory Rate Blood Pressure Pulse Oximetry 05/10/18 03:00 05/10/18 03:49 05/10/18 03:59 Temperature 97.6 F Pulse Rate 67 77 78 Respiratory Rate 16 Blood Pressure 102/68 Pulse Oximetry 98 05/10/18 05:00 05/10/18 06:00 05/10/18 07:00 Temperature Pulse Rate 89 79 84 Respiratory Rate Blood Pressure Pulse Oximetry 05/10/18 08:00 05/10/18 09:00 Temperature 98.2 F Pulse Rate 75 87 Respiratory Rate 16 Blood Pressure 145/77 H Pulse Oximetry 92 L Intake & Output 05/09/18 05/10/18 05/10/18 18:59 06:59 18:59 Intake Total 240 / 240 Output Total 600 / 600 Balance -360 / -360 Weight 89.811 kg 89.8 kg Intake: Oral 240 / 240 Output: Urine 600 / 600 - Constitutional no acute distress - Routine Neck Exam Present: supple - Routine Respiratory Exam Present: CTA bilaterally - Routine Cardiovascular Exam Present: murmur, irregular rhythm - Routine Abdominal Exam Present: soft - Routine Extremities Exam Comments: Right lower extremity edema 1+ - Routine Skin Exam Present: intact - Routine Neurological Exam Present: alert, oriented X3 Results 05/09/18 18:00 05/10/18 04:19 Cardiac Enzymes 05/09/18 05/09/18 Range/Units 18:00 18:00 AST 37 (15-37) U/L Troponin I 0.03 (0.02-0.05) ng/mL B-Natriuretic Peptide 2642 H (0-100) pg/mL Coagulation 05/09/18 Range/Units 18:00 B-Natriuretic Peptide 2642 H (0-100) pg/mL CBC 05/09/18 Range/Units 18:00 WBC 7.3 (4.0-11.0) th/mm3 RBC 5.15 (4.50-5.90) mil/mm3 Hgb 15.4 (13.0-17.0) gm/dL Hct 46.0 (39.0-51.0) % Plt Count 208 (150-450) th/mm3 Neut # (Auto) 4.5 (1.8-7.7) th/mm3 Lymph # (Auto) 2.2 (1.0-4.8) th/mm3 [place] # (Auto) 0.6 (0.0-0.9) th/mm3 Eos # (Auto) 0.0 (0.0-0.4) th/mm3 Baso # (Auto) 0.0 (0.0-0.2) th/mm3 Comprehensive Metabolic Panel 05/09/18 05/10/18 Range/Units 18:00 04:19 Sodium 141 145 (136-145) meq/L Potassium 4.3 4.0 (3.5-5.1) meq/L Chloride 105 107 (98-107) meq/L Carbon Dioxide 23.9 27.9 (21.0-32.0) meq/L BUN 26 H 25 H (7-18) mg/dL Creatinine 1.58 H 1.48 H (0.60-1.30) mg/dL Calcium 8.6 8.4 L (8.5-10.1) mg/dL AST 37 (15-37) U/L ALT 49 (12-78) U/L Alkaline Phosphatase 75 (45-117) U/L Total Protein 7.0 (6.4-8.2) g/dL Albumin 3.3 L (3.4-5.0) g/dL Intake and Output 05/09/18 05/10/18 05/10/18 22:59 06:59 14:59 Intake Total 240 / 240 Output Total 600 / 600 Balance -360 / -360 Intake: Oral 240 / 240 Output: Urine 600 / 600 Other: Weight 89.811 kg 89.8 kg EKG interpretations - Dysrhythmias Supraventricular dysrhythmia: atrial fibrillation Assessment and Plan - Plan Assessment Atrial fibrillation with rapid ventricular response anticoagulated on Pradaxa Cardiomyopathy ejection fraction 20-25% on echocardiogram April 15, 2018. Etiology unknown. Was discharged with LifeVest on prior hospitalization Exacerbation of congestive heart failure with decreased ejection fraction Chronic kidney disease Plan: Change from metoprolol to Coreg Stop Cardizem drip Continue Entresto Continue IV diuresis Follow-up BMP The patient will need to follow-up with Dr. Laird following discharge, who the patient is known to. Advised the patient to have LifeVest delivered to the hospital to be discharged with. The patient was seen and evaluated by Dr. Troy who completed a [id number] encounter and physical exam and participated in evaluation and management. The exam, history, and the medical decision-making described in the above note were completed with the assistance of the mid-level provider. I reviewed and agree with the findings presented. I attest that I had a [id number] encounter with the patient on the same day, and personally performed and documented my assessment and findings in the medical record. Overall doing better chf improving
--- NOTE | 2018-05-10 11:17 | P.PN ---
Subjective Interval history: Follow-up Sherry purdy with RVR/systolic CHF exacerbation May 10, 2018-patient seen and examined, currently rate controlled and denies any chest pain or significant shortness of breath. Complains of urinary retention and has some occasional dribbling. He is not currently wearing his LifeVest Physical Exam Vital signs: Vital Signs 05/09/18 17:30 05/09/18 17:44 05/09/18 19:15 Temperature 97.9 F Pulse Rate 123 H 128 H 104 H Respiratory Rate 22 15 Blood Pressure 116/72 111/84 Pulse Oximetry 98 97 96 05/09/18 22:00 05/09/18 23:07 05/10/18 00:30 Temperature 98.7 F Pulse Rate 120 H 105 H 67 Respiratory Rate 12 18 16 Blood Pressure 133/85 116/66 109/69 Pulse Oximetry 96 96 95 05/10/18 00:41 05/10/18 01:00 05/10/18 02:00 Temperature Pulse Rate 67 80 69 Respiratory Rate Blood Pressure Pulse Oximetry 05/10/18 03:00 05/10/18 03:49 05/10/18 03:59 Temperature 97.6 F Pulse Rate 67 77 78 Respiratory Rate 16 Blood Pressure 102/68 Pulse Oximetry 98 05/10/18 05:00 05/10/18 06:00 05/10/18 07:00 Temperature Pulse Rate 89 79 84 Respiratory Rate Blood Pressure Pulse Oximetry 05/10/18 08:00 05/10/18 09:00 05/10/18 10:00 Temperature 98.2 F Pulse Rate 75 87 88 Respiratory Rate 16 Blood Pressure 145/77 H Pulse Oximetry 92 L 05/10/18 11:00 Temperature Pulse Rate 76 Respiratory Rate Blood Pressure Pulse Oximetry Intake & Output 05/09/18 05/10/18 05/10/18 18:59 06:59 18:59 Intake Total 240 / 240 Output Total 600 / 600 Balance -360 / -360 Weight 89.811 kg 89.8 kg Intake: Oral 240 / 240 Output: Urine 600 / 600 Narrative: GENERAL: NAD SKIN: Warm and dry. HEAD: Normocephalic. EYES: No scleral icterus. No injection or drainage. NECK: Supple, trachea midline. No JVD or lymphadenopathy. CARDIOVASCULAR: Irregular regular rate and rhythm without murmurs, gallops, or rubs. RESPIRATORY: Breath sounds equal bilaterally. No accessory muscle use. GASTROINTESTINAL: Abdomen soft, non-tender, nondistended. MUSCULOSKELETAL: No cyanosis, or edema. BACK: Nontender without obvious deformity. No CVA tenderness. Results - Labs CBC & Chem 7: 05/09/18 18:00 05/10/18 04:19 Laboratory Results - last 24 hr 05/09/18 05/09/18 05/09/18 17:45 18:00 18:00 WBC 7.3 RBC 5.15 Hgb 15.4 Hct 46.0 MCV 89.4 MCH 30.0 MCHC 33.6 RDW 15.5 Plt Count 208 MPV 10.5 Neut % (Auto) 61.3 Lymph % (Auto) 29.9 [place] % (Auto) 8.2 H Eos % (Auto) 0.2 Baso % (Auto) 0.4 Neut # (Auto) 4.5 Lymph # (Auto) 2.2 [place] # (Auto) 0.6 Eos # (Auto) 0.0 Baso # (Auto) 0.0 WBC Differential . Differential Comment Auto diff final Sodium 141 Potassium 4.3 Chloride 105 Carbon Dioxide 23.9 Anion Gap 12 BUN 26 H Creatinine 1.58 H Estimated GFR 44 L Random Glucose 108 H Calcium 8.6 Magnesium 2.1 Total Bilirubin 1.9 H AST 37 ALT 49 Alkaline Phosphatase 75 Troponin I 0.03 B-Natriuretic Peptide Total Protein 7.0 Albumin 3.3 L Digoxin 0.1 L 05/09/18 05/10/18 18:00 04:19 WBC RBC Hgb Hct MCV MCH MCHC RDW Plt Count MPV Neut % (Auto) Lymph % (Auto) [place] % (Auto) Eos % (Auto) Baso % (Auto) Neut # (Auto) Lymph # (Auto) [place] # (Auto) Eos # (Auto) Baso # (Auto) WBC Differential Differential Comment Sodium 145 Potassium 4.0 Chloride 107 Carbon Dioxide 27.9 Anion Gap 10 BUN 25 H Creatinine 1.48 H Estimated GFR 47 L Random Glucose 103 Calcium 8.4 L Magnesium Total Bilirubin AST ALT Alkaline Phosphatase Troponin I B-Natriuretic Peptide 2642 H Total Protein Albumin Digoxin - Imaging Impressions Chest X-Ray 05/09/18 17:44 CONCLUSION: Trace bibasilar atelectasis and tiny right pleural effusion. Venous Doppler Study 05/09/18 19:17 CONCLUSION: Negative study. No venous thrombosis of the right lower extremity. - Procedures None Assessment and Plan - Assessment (1) Atrial fibrillation with RVR Code(s): I48.91 - Unspecified atrial fibrillation Status: Acute (2) Cardiomyopathy Code(s): I42.9 - Cardiomyopathy, unspecified Status: Acute - Plan 68-year-old man with Atrial fibrillation with rapid ventricular response Currently on Cardizem drip however will discontinue that and resume Cardizem p.o. On Coreg and continue Pradaxa Appreciate input from cardiology Cardiomyopathy ejection fraction 20-25% on echocardiogram April 15, 2018. Etiology unknown. Was discharged with LifeVest on prior hospitalization, Patient advised to have LifeVest on Exacerbation of congestive heart failure with decreased ejection fraction Continued Entresto, Lasix 40 mg IV every 12 Appreciate input from cardiology Chronic kidney disease Monitor BUN and creatinine Hypertension/hyperlipidemia/GERD Continue home medications (2) Cardiomyopathy Qualifiers: Cardiomyopathy type: unspecified Qualified Code(s): I42.9 - Cardiomyopathy, unspecified
--- NOTE | 2018-05-10 11:51 | ECG ---
Date Performed: 05/09/2018 Time Performed: 17:38:51 PTAGE: 68 years EKG: ATRIAL FIBRILLATION WITH RAPID VENTRICULAR RESPONSE NONSPECIFIC T-WAVE ABNORMALITY ABNORMAL RHYTHM ECG NO PREVIOUS TRACING DOCTOR: Lasha Hernandez Interpretating Date/Time 05/10/2018 11:49:12
[2018-05-10] MEDS: Carvedilol 6.25 MG Tablet PO SCH (20:51)
[2018-05-11 04:57] LABS: Calcium 8.7 mg/dL (8.5-10.1); Carbon Dioxide 25.8 meq/L (21.0-32.0); Potassium 3.7 meq/L (3.5-5.1)
[2018-05-11] MEDS: Carvedilol 6.25 MG Tablet PO SCH (08:12)
[2018-05-11] MEDS: Mirtazapine 15 MG Tablet PO SCH (08:13)
[2018-05-11] MEDS: Pantoprazole Sodium 20 MG DR Tablet PO SCH (08:13)
[2018-05-11] MEDS: Sertraline 50 MG Tablet PO SCH (08:13)
--- NOTE | 2018-05-11 10:26 | P.PN ---
Subjective Interval history: Follow-up Sherry purdy with RVR/systolic CHF exacerbation May 10, 2018-patient seen and examined, currently rate controlled and denies any chest pain or significant shortness of breath. Complains of urinary retention and has some occasional dribbling. He is not currently wearing his LifeVest May 11, 2028-patient seen and examined, rate not controlled. Denies any chest pain however reports some shortness of breath; otherwise no acute event overnight. Physical Exam Vital signs: Vital Signs 05/10/18 11:00 05/10/18 11:17 05/10/18 12:00 Temperature 98.2 F Pulse Rate 76 84 78 Respiratory Rate 18 Blood Pressure 89/67 L Pulse Oximetry 96 05/10/18 13:00 05/10/18 14:00 05/10/18 15:00 Temperature 98.6 F Pulse Rate 76 80 82 Respiratory Rate 18 Blood Pressure 94/68 L Pulse Oximetry 98 05/10/18 15:43 05/10/18 16:00 05/10/18 17:00 Temperature 98.6 F Pulse Rate 82 98 H 97 H Respiratory Rate 18 Blood Pressure 112/53 L Pulse Oximetry 98 05/10/18 17:29 05/10/18 18:00 05/10/18 19:00 Temperature 98.0 F Pulse Rate 98 H 89 Respiratory Rate 20 Blood Pressure 102/74 Pulse Oximetry 98 96 05/10/18 20:00 05/10/18 21:00 05/10/18 22:00 Temperature Pulse Rate 92 H 104 H 86 Respiratory Rate Blood Pressure Pulse Oximetry 96 05/10/18 23:00 05/11/18 00:00 05/11/18 01:00 Temperature 98.2 F Pulse Rate 76 78 84 Respiratory Rate 16 Blood Pressure 92/63 L Pulse Oximetry 95 05/11/18 02:00 05/11/18 03:00 05/11/18 04:00 Temperature 97.6 F Pulse Rate 84 97 H 92 H Respiratory Rate 18 Blood Pressure 135/76 Pulse Oximetry 96 05/11/18 05:00 05/11/18 06:00 05/11/18 07:00 Temperature 97.4 F L Pulse Rate 86 92 H 97 H Respiratory Rate 16 Blood Pressure 115/78 Pulse Oximetry 99 05/11/18 08:00 05/11/18 09:00 09/13/18 10:00 Temperature Pulse Rate 107 H 120 H 117 H Respiratory Rate Blood Pressure Pulse Oximetry 99 Intake & Output 05/10/18 05/11/18 05/11/18 18:59 06:59 18:59 Intake Total 1250 / 1250 845 / 845 Output Total 1220 / 1220 1300 / 1300 Balance 30 / 30 -455 / -455 Weight 89.5 kg Intake: IV 125 / 125 Oral 1250 / 1250 720 / 720 Output: Urine 1220 / 1220 1300 / 1300 Other: # Bowel Movements 1 Narrative: GENERAL: NAD SKIN: Warm and dry. HEAD: Normocephalic. EYES: No scleral icterus. No injection or drainage. NECK: Supple, trachea midline. No JVD or lymphadenopathy. CARDIOVASCULAR: Irregular regular rate and rhythm without murmurs, gallops, or rubs. RESPIRATORY: Breath sounds equal bilaterally. No accessory muscle use. GASTROINTESTINAL: Abdomen soft, non-tender, nondistended. MUSCULOSKELETAL: No cyanosis, or edema. BACK: Nontender without obvious deformity. No CVA tenderness. Results - Labs CBC & Chem 7: 05/09/18 18:00 05/11/18 04:23 Laboratory Results - last 24 hr 05/11/18 04:23 Sodium 142 Potassium 3.7 Chloride 106 Carbon Dioxide 25.8 Anion Gap 10 BUN 23 H Creatinine 1.29 Estimated GFR 55 L Random Glucose 108 H Calcium 8.7 - Procedures None Assessment and Plan - Assessment (1) Atrial fibrillation with RVR Code(s): I48.91 - Unspecified atrial fibrillation Status: Acute (2) Cardiomyopathy Code(s): I42.9 - Cardiomyopathy, unspecified Status: Acute - Plan 68-year-old man with Atrial fibrillation with rapid ventricular response off Cardizem drip, cardiology to decide on resuming Cardizem p.o. On Coreg and continue Pradaxa Appreciate input from cardiology Cardiomyopathy ejection fraction 20-25% on echocardiogram April 15, 2018. Etiology unknown. Was discharged with LifeVest on prior hospitalization, Patient advised to have LifeVest on Exacerbation of congestive heart failure with decreased ejection fraction Continued Entresto, Lasix 40 mg IV every 12 Appreciate input from cardiology Chronic kidney disease Monitor BUN and creatinine Hypertension/hyperlipidemia/GERD Continue home medications (2) Cardiomyopathy Qualifiers: Cardiomyopathy type: unspecified Qualified Code(s): I42.9 - Cardiomyopathy, unspecified
--- NOTE | 2018-05-11 13:23 | P.PNCA ---
Subjective Interval history: Today, the patient feels more fatigued and SOB with exertion. Unable to complete his walk this morning due to aforementioned symptoms. No CP. Edema improved. HR increases to 130 bpm on telemetry. He remains afib. Physical Exam Vital signs: Vital Signs 05/10/18 14:00 05/10/18 15:00 05/10/18 15:43 Temperature 98.6 F 98.6 F Pulse Rate 80 82 82 Respiratory Rate 18 18 Blood Pressure 94/68 L 112/53 L Pulse Oximetry 98 98 05/10/18 16:00 05/10/18 17:00 05/10/18 17:29 Temperature Pulse Rate 98 H 97 H Respiratory Rate Blood Pressure Pulse Oximetry 98 05/10/18 18:00 05/10/18 19:00 05/10/18 20:00 Temperature 98.0 F Pulse Rate 98 H 89 92 H Respiratory Rate 20 Blood Pressure 102/74 Pulse Oximetry 96 96 05/10/18 21:00 05/10/18 22:00 05/10/18 23:00 Temperature 98.2 F Pulse Rate 104 H 86 76 Respiratory Rate 16 Blood Pressure 92/63 L Pulse Oximetry 95 05/11/18 00:00 05/11/18 01:00 05/11/18 02:00 Temperature Pulse Rate 78 84 84 Respiratory Rate Blood Pressure Pulse Oximetry 05/11/18 03:00 05/11/18 04:00 05/11/18 05:00 Temperature 97.6 F Pulse Rate 97 H 92 H 86 Respiratory Rate 18 Blood Pressure 135/76 Pulse Oximetry 96 05/11/18 06:00 05/11/18 07:00 05/11/18 08:00 Temperature 97.4 F L Pulse Rate 92 H 97 H 107 H Respiratory Rate 16 Blood Pressure 115/78 Pulse Oximetry 99 99 05/11/18 09:00 05/11/18 10:00 05/11/18 11:00 Temperature 97.8 F Pulse Rate 120 H 117 H 80 Respiratory Rate 16 Blood Pressure 99/55 L Pulse Oximetry 99 05/11/18 11:17 05/11/18 12:00 05/11/18 13:00 Temperature Pulse Rate 92 H 110 H Respiratory Rate Blood Pressure Pulse Oximetry 99 Intake & Output 05/10/18 05/11/18 05/11/18 18:59 06:59 18:59 Intake Total 1250 / 1250 845 / 845 Output Total 1220 / 1220 1300 / 1300 Balance 30 / 30 -455 / -455 Weight 89.5 kg Intake: IV 125 / 125 Oral 1250 / 1250 720 / 720 Output: Urine 1220 / 1220 1300 / 1300 Other: # Bowel Movements 1 - Constitutional no acute distress - Routine HEENT Exam ENT: Present: mucous membranes moist - Routine Neck Exam Present: supple - Routine Respiratory Exam Present: CTA bilaterally - Routine Cardiovascular Exam Present: tachycardia, irregularly irregular - Routine Abdominal Exam Present: soft - Routine Extremities Exam Comments: pretibial edema - Routine Skin Exam Present: intact - Routine Neurological Exam Present: alert, oriented X3 - Routine Psychiatric Exam Present: good judgment, anxious Assessment and Plan - Plan Assessment Atrial fibrillation with rapid ventricular response anticoagulated on Pradaxa Cardiomyopathy ejection fraction 20-25% on echocardiogram April 15, 2018. Etiology unknown. Was discharged with LifeVest on prior hospitalization Exacerbation of congestive heart failure with decreased ejection fraction Chronic kidney disease Plan: Change to torsemide 20 mg daily, add K+ 20 meq daily Increase coreg Follow up BMP tomorrow. Continue tele monitor The patient will need to follow-up with Dr. Laird following discharge, who the patient is known to. Advised the patient to have LifeVest delivered to the hospital to be discharged with. The patient was seen and evaluated by Dr. Troy who completed a [id number] encounter and physical exam and participated in evaluation and management. The exam, history, and the medical decision-making described in the above note were completed with the assistance of the mid-level provider. I reviewed and agree with the findings presented. I attest that I had a [id number] encounter with the patient on the same day, and personally performed and documented my assessment and findings in the medical record. Pt will be discharged off coreg ans bp markedly lower this pm 84/60.If discharged will fu with Dr Bennett next week.
[2018-05-11] MEDS ORDERED: ALPRAZolam 0.5 MG Tablet PO ONE (20:15)
[2018-05-11] MEDS ORDERED: Carvedilol 12.5 MG Tablet PO SCH (21:00)
[2018-05-12 06:57] LABS: Calcium 8.7 mg/dL (8.5-10.1); Carbon Dioxide 31.1 meq/L (21.0-32.0)
[2018-05-12] MEDS: Torsemide 20 MG Tablet PO SCH (09:12)
[2018-05-12] MEDS: Pantoprazole Sodium 20 MG DR Tablet PO SCH (09:12)
[2018-05-12] MEDS: Sertraline 50 MG Tablet PO SCH (09:12)
[2018-05-12] MEDS: Mirtazapine 15 MG Tablet PO SCH (09:12)
[2018-05-12] MEDS: Digoxin Inj 500 MCG/2 ML Ampul IV.PUSH ONE ×2 (11:16→14:37)
[2018-05-12] MEDS: dilTIAZem 30 MG Tablet PO SCH ×2 (11:16→14:37)
--- NOTE | 2018-05-12 12:13 | P.PN ---
Subjective Interval history: Follow-up Sherry purdy with RVR/systolic CHF exacerbation May 10, 2018-patient seen and examined, currently rate controlled and denies any chest pain or significant shortness of breath. Complains of urinary retention and has some occasional dribbling. He is not currently wearing his LifeVest May 11, 2018-patient seen and examined, rate not controlled. Denies any chest pain however reports some shortness of breath; otherwise no acute event overnight May 12, 2018-patient seen and examined, states he is short of breath with activity otherwise stable Physical Exam Vital signs: Vital Signs 05/11/18 13:00 05/11/18 14:00 05/11/18 15:00 Temperature 97.4 F L Pulse Rate 110 H 88 79 Respiratory Rate 16 Blood Pressure 91/61 L Pulse Oximetry 98 05/11/18 16:00 05/11/18 17:00 05/11/18 18:00 Temperature Pulse Rate 93 H 97 H 107 H Respiratory Rate Blood Pressure Pulse Oximetry 05/11/18 19:00 05/11/18 20:00 05/11/18 21:00 Temperature 98.0 F Pulse Rate 110 H 116 H 108 H Respiratory Rate 16 Blood Pressure 98/75 L Pulse Oximetry 95 94 L 05/11/18 22:00 05/11/18 23:00 05/12/18 00:00 Temperature 98.2 F Pulse Rate 112 H 116 H 98 H Respiratory Rate 18 Blood Pressure 101/81 Pulse Oximetry 95 05/12/18 01:00 05/12/18 02:00 05/12/18 03:00 Temperature 98.0 F Pulse Rate 81 84 95 H Respiratory Rate 16 Blood Pressure 109/80 Pulse Oximetry 98 05/12/18 04:00 05/12/18 05:00 05/12/18 06:00 Temperature Pulse Rate 104 H 101 H 104 H Respiratory Rate Blood Pressure Pulse Oximetry 05/12/18 07:00 05/12/18 09:01 05/12/18 11:00 Temperature 97 F L 97.5 F L Pulse Rate 126 H 87 Respiratory Rate 16 14 Blood Pressure 116/83 88/60 L Pulse Oximetry 97 98 96 Intake & Output 05/11/18 05/12/18 05/12/18 18:59 06:59 18:59 Intake Total 1150 / 1150 480 / 480 Output Total 1200 / 1200 400 / 400 Balance -50 / -50 80 / 80 Weight 88.5 kg Intake: Oral 1150 / 1150 480 / 480 Output: Urine 1200 / 1200 400 / 400 Narrative: GENERAL: NAD SKIN: Warm and dry. HEAD: Normocephalic. EYES: No scleral icterus. No injection or drainage. NECK: Supple, trachea midline. No JVD or lymphadenopathy. CARDIOVASCULAR: Irregular regular rate and rhythm without murmurs, gallops, or rubs. RESPIRATORY: Breath sounds equal bilaterally. No accessory muscle use. GASTROINTESTINAL: Abdomen soft, non-tender, nondistended. MUSCULOSKELETAL: No cyanosis, or edema. BACK: Nontender without obvious deformity. No CVA tenderness. Results - Labs CBC & Chem 7: 05/09/18 18:00 05/12/18 05:53 Laboratory Results - last 24 hr 05/12/18 05:53 Sodium 143 Potassium 4.0 Chloride 104 Carbon Dioxide 31.1 Anion Gap 8 BUN 22 H Creatinine 1.29 Estimated GFR 55 L Random Glucose 96 Calcium 8.7 - Procedures None Assessment and Plan - Assessment (1) Atrial fibrillation with RVR Code(s): I48.91 - Unspecified atrial fibrillation Status: Acute (2) Cardiomyopathy Code(s): I42.9 - Cardiomyopathy, unspecified Status: Acute - Plan 68-year-old man with Atrial fibrillation with rapid ventricular response Currently on Cardizem 30 mg 3 times daily p.o. On Coreg and continue Pradaxa Appreciate input from cardiology Cardiomyopathy ejection fraction 20-25% on echocardiogram April 15, 2018. Etiology unknown. Was discharged with LifeVest on prior hospitalization, Patient advised to have LifeVest on prior to discharge Exacerbation of congestive heart failure with decreased ejection fraction Continued Entresto and torsemide 20 mg daily, status post Lasix 40 mg IV every 12 Appreciate input from cardiology Chronic kidney disease Monitor BUN and creatinine Hypertension/hyperlipidemia/GERD Continue home medications (2) Cardiomyopathy Qualifiers: Cardiomyopathy type: unspecified Qualified Code(s): I42.9 - Cardiomyopathy, unspecified
--- NOTE | 2018-05-12 14:01 | P.PNCA ---
Subjective Interval history: Yesterday, the patient had symptomatic hypotension with systolic blood pressure in the 70s and recurrent episode of systolic blood pressure in the 80s. Metoprolol was stopped. Heart rate increased into the 130s and 140s this morning on telemetry with mild activity. The patient states shortness of breath with activity. No edema, no chest pain. The exam, history, and the medical decision-making described in the above note were completed with the assistance of the mid-level provider. I reviewed and agree with the findings presented. I attest that I had a [id number] encounter with the patient on the same day, and personally performed and documented my assessment and findings in the medical record. Overall doing better control meds bp vs tachycardia Physical Exam Vital signs: Vital Signs 05/11/18 14:00 05/11/18 15:00 05/11/18 16:00 Temperature 97.4 F L Pulse Rate 88 79 93 H Respiratory Rate 16 Blood Pressure 91/61 L Pulse Oximetry 98 05/11/18 17:00 05/11/18 18:00 05/11/18 19:00 Temperature 98.0 F Pulse Rate 97 H 107 H 110 H Respiratory Rate 16 Blood Pressure 98/75 L Pulse Oximetry 95 05/11/18 20:00 05/11/18 21:00 05/11/18 22:00 Temperature Pulse Rate 116 H 108 H 112 H Respiratory Rate Blood Pressure Pulse Oximetry 94 L 05/11/18 23:00 05/12/18 00:00 05/12/18 01:00 Temperature 98.2 F Pulse Rate 116 H 98 H 81 Respiratory Rate 18 Blood Pressure 101/81 Pulse Oximetry 95 05/12/18 02:00 05/12/18 03:00 05/12/18 04:00 Temperature 98.0 F Pulse Rate 84 95 H 104 H Respiratory Rate 16 Blood Pressure 109/80 Pulse Oximetry 98 05/12/18 05:00 05/12/18 06:00 05/12/18 07:00 Temperature 97 F L Pulse Rate 101 H 104 H 126 H Respiratory Rate 16 Blood Pressure 116/83 Pulse Oximetry 97 05/12/18 08:00 05/12/18 09:00 05/12/18 09:01 Temperature Pulse Rate 104 H 134 H Respiratory Rate Blood Pressure Pulse Oximetry 98 05/12/18 10:00 05/12/18 11:00 05/12/18 12:00 Temperature 97.5 F L Pulse Rate 88 107 H 92 H Respiratory Rate 14 Blood Pressure 88/60 L Pulse Oximetry 96 Intake & Output 05/11/18 05/12/18 05/12/18 18:59 06:59 18:59 Intake Total 1150 / 1150 480 / 480 Output Total 1200 / 1200 400 / 400 Balance -50 / -50 80 / 80 Weight 88.5 kg Intake: Oral 1150 / 1150 480 / 480 Output: Urine 1200 / 1200 400 / 400 Other: Date of Last Bowel Movement 05/11/18 - Constitutional no acute distress - Routine HEENT Exam Head: Present: normocephalic - Routine Neck Exam Present: supple - Routine Respiratory Exam Present: CTA bilaterally - Routine Cardiovascular Exam Present: tachycardia, irregularly irregular - Routine Abdominal Exam Present: soft - Routine Extremities Exam Comments: No edema - Routine Skin Exam Present: intact - Routine Neurological Exam Present: alert, oriented X3 Assessment and Plan - Plan Assessment Atrial fibrillation with rapid ventricular response anticoagulated on Pradaxa Cardiomyopathy ejection fraction 20-25% on echocardiogram April 15, 2018. Etiology unknown. Was discharged with LifeVest on prior hospitalization Resolved exacerbation of congestive heart failure with decreased ejection fraction Recurrent hypotension Chronic kidney disease Plan: Stop Entresto secondary to recurrent hypotension. Add losartan 25 mg daily. Start metoprolol 12.5 mg twice a day. Start digoxin 0.125 mg daily Continue torsemide and potassium with BMP follow-up Continue tele monitor The patient will need to follow-up with Dr. Laird following discharge next week, who the patient is known to. Advised the patient to have LifeVest delivered to the hospital to be discharged with. The patient was seen and evaluated by Dr. Troy who completed a [id number] encounter and physical exam and participated in evaluation and management.
[2018-05-12] MEDS ORDERED: Digoxin 125 MCG Tablet PO ONE (15:00)
[2018-05-12] MEDS: Metoprolol Tartrate 25 MG Tablet PO SCH (20:49)
[2018-05-12] MEDS ORDERED: ALPRAZolam 0.5 MG Tablet PO ONE (21:02)
[2018-05-13] MEDS: Digoxin 125 MCG Tablet PO SCH (08:35)
[2018-05-13] MEDS: Sertraline 50 MG Tablet PO SCH (08:35)
[2018-05-13] MEDS: Metoprolol Tartrate 25 MG Tablet PO SCH ×2 (08:36→20:30)
[2018-05-13] MEDS: Pantoprazole Sodium 20 MG DR Tablet PO SCH (08:36)
[2018-05-13] MEDS: Mirtazapine 15 MG Tablet PO SCH (10:51)
[2018-05-13] MEDS: Torsemide 20 MG Tablet PO SCH (10:51)
--- NOTE | 2018-05-13 11:14 | P.PNCA ---
Subjective Interval history: Says he feels fine today BP improved rate controlled weight down 19# Physical Exam Vital signs: Vital Signs 05/12/18 12:00 05/12/18 13:00 05/12/18 14:00 Temperature Pulse Rate 92 H 130 H 104 H Respiratory Rate Blood Pressure Pulse Oximetry 05/12/18 15:00 05/12/18 16:00 05/12/18 17:00 Temperature 97 F L Pulse Rate 91 H 116 H 108 H Respiratory Rate 14 Blood Pressure 95/68 L Pulse Oximetry 98 05/12/18 17:03 05/12/18 18:00 05/12/18 19:00 Temperature 97.6 F Pulse Rate 134 H 110 H Respiratory Rate 16 Blood Pressure 112/77 Pulse Oximetry 96 97 05/12/18 20:00 05/12/18 21:00 05/12/18 22:00 Temperature Pulse Rate 106 H 126 H 110 H Respiratory Rate Blood Pressure Pulse Oximetry 94 L 05/12/18 23:00 05/13/18 00:00 05/13/18 01:00 Temperature 97.8 F Pulse Rate 116 H 90 102 H Respiratory Rate 18 Blood Pressure 110/72 Pulse Oximetry 99 05/13/18 02:00 05/13/18 03:00 05/13/18 04:00 Temperature 98.3 F Pulse Rate 100 H 98 H 114 H Respiratory Rate 16 Blood Pressure 105/81 Pulse Oximetry 95 05/13/18 05:00 05/13/18 06:00 05/13/18 07:00 Temperature 98.5 F Pulse Rate 118 H 112 H 94 H Respiratory Rate 18 Blood Pressure 110/68 Pulse Oximetry 95 05/13/18 08:00 05/13/18 09:00 05/13/18 10:00 Temperature Pulse Rate 100 H 97 H 97 H Respiratory Rate Blood Pressure Pulse Oximetry 95 05/13/18 11:00 Temperature 98.3 F Pulse Rate 93 H Respiratory Rate 18 Blood Pressure 104/62 Pulse Oximetry 96 Intake & Output 05/12/18 05/13/18 05/13/18 18:59 06:59 18:59 Intake Total 720 / 720 360 / 360 Output Total 700 / 700 300 / 300 Balance 20 / 20 60 / 60 Weight 87 kg Intake: Oral 720 / 720 360 / 360 Output: Urine 700 / 700 300 / 300 Other: Date of Last Bowel Movement 05/12/18 05/11/18 # Bowel Movements 3 - Constitutional no acute distress - Routine HEENT Exam Head: Present: normocephalic Eye: Present: EOMI, PERRL - Routine Neck Exam Present: supple, normal carotid upstroke - Routine Respiratory Exam Present: CTA bilaterally - Routine Cardiovascular Exam Present: irregular rhythm - Routine Abdominal Exam Present: soft, normoactive bowel sounds Comments: Trace edema Assessment and Plan - Plan Assessment Atrial fibrillation controlled anticoagulated on Pradaxa Cardiomyopathy ejection fraction 20-25% on echocardiogram April 15, 2018. Etiology unknown. Recurrent hypotension Chronic kidney disease Plan: Continue torsemide and potassium with BMP follow-up Continue tele monitor The patient will need to follow-up with Dr. Laird following discharge next week, who the patient is known to.
--- NOTE | 2018-05-13 11:30 | P.PN ---
Subjective Interval history: Follow-up Sherry purdy with RVR/systolic CHF exacerbation May 10, 2018-patient seen and examined, currently rate controlled and denies any chest pain or significant shortness of breath. Complains of urinary retention and has some occasional dribbling. He is not currently wearing his LifeVest May 11, 2018-patient seen and examined, rate not controlled. Denies any chest pain however reports some shortness of breath; otherwise no acute event overnight May 12, 2018-patient seen and examined, states he is short of breath with activity otherwise stable May 13, 2018-patient seen and examined, rate currently controlled. Patient denies any significant shortness of breath. States he is feeling much better. Physical Exam Vital signs: Vital Signs 05/12/18 12:00 05/12/18 13:00 05/12/18 14:00 Temperature Pulse Rate 92 H 130 H 104 H Respiratory Rate Blood Pressure Pulse Oximetry 05/12/18 15:00 05/12/18 16:00 05/12/18 17:00 Temperature 97 F L Pulse Rate 91 H 116 H 108 H Respiratory Rate 14 Blood Pressure 95/68 L Pulse Oximetry 98 05/12/18 17:03 05/12/18 18:00 05/12/18 19:00 Temperature 97.6 F Pulse Rate 134 H 110 H Respiratory Rate 16 Blood Pressure 112/77 Pulse Oximetry 96 97 05/12/18 20:00 05/12/18 21:00 05/12/18 22:00 Temperature Pulse Rate 106 H 126 H 110 H Respiratory Rate Blood Pressure Pulse Oximetry 94 L 05/12/18 23:00 05/13/18 00:00 05/13/18 01:00 Temperature 97.8 F Pulse Rate 116 H 90 102 H Respiratory Rate 18 Blood Pressure 110/72 Pulse Oximetry 99 05/13/18 02:00 05/13/18 03:00 05/13/18 04:00 Temperature 98.3 F Pulse Rate 100 H 98 H 114 H Respiratory Rate 16 Blood Pressure 105/81 Pulse Oximetry 95 05/13/18 05:00 05/13/18 06:00 05/13/18 07:00 Temperature 98.5 F Pulse Rate 118 H 112 H 94 H Respiratory Rate 18 Blood Pressure 110/68 Pulse Oximetry 95 05/13/18 08:00 05/13/18 09:00 09/15/18 10:00 Temperature Pulse Rate 100 H 97 H 97 H Respiratory Rate Blood Pressure Pulse Oximetry 95 05/13/18 11:00 Temperature 98.3 F Pulse Rate 93 H Respiratory Rate 18 Blood Pressure 104/62 Pulse Oximetry 96 Intake & Output 05/12/18 05/13/18 05/13/18 18:59 06:59 18:59 Intake Total 720 / 720 360 / 360 Output Total 700 / 700 300 / 300 Balance 60 / 60 Weight 87 kg Intake: Oral 720 / 720 360 / 360 Output: Urine 700 / 700 300 / 300 Other: Date of Last Bowel Movement 05/12/18 05/11/18 # Bowel Movements 3 Narrative: GENERAL: NAD SKIN: Warm and dry. HEAD: Normocephalic. EYES: No scleral icterus. No injection or drainage. NECK: Supple, trachea midline. No JVD or lymphadenopathy. CARDIOVASCULAR: Irregular regular rate and rhythm without murmurs, gallops, or rubs. RESPIRATORY: Breath sounds equal bilaterally. No accessory muscle use. GASTROINTESTINAL: Abdomen soft, non-tender, nondistended. MUSCULOSKELETAL: No cyanosis, or edema. BACK: Nontender without obvious deformity. No CVA tenderness. Results - Labs CBC & Chem 7: 05/09/18 18:00 05/12/18 05:53 - Procedures None Assessment and Plan - Assessment (1) Atrial fibrillation with RVR Code(s): I48.91 - Unspecified atrial fibrillation Status: Acute (2) Cardiomyopathy Code(s): I42.9 - Cardiomyopathy, unspecified Status: Acute - Plan 68-year-old man with Atrial fibrillation with rapid ventricular response Currently on Cardizem 30 mg 3 times daily p.o. On Coreg and continue Pradaxa Appreciate input from cardiology Cardiomyopathy ejection fraction 20-25% on echocardiogram April 15, 2018. Etiology unknown. Was discharged with LifeVest on prior hospitalization, Patient advised to have LifeVest on prior to discharge Exacerbation of congestive heart failure with decreased ejection fraction- improving Continued Entresto and torsemide 20 mg daily, status post Lasix 40 mg IV every 12 Appreciate input from cardiology Chronic kidney disease Monitor BUN and creatinine Hypertension/hyperlipidemia/GERD Continue home medications (2) Cardiomyopathy Qualifiers: Cardiomyopathy type: unspecified Qualified Code(s): I42.9 - Cardiomyopathy, unspecified
[2018-05-14] MEDS: Metoprolol Tartrate 25 MG Tablet PO SCH (08:36)
[2018-05-14] MEDS: Mirtazapine 15 MG Tablet PO SCH (08:36)
[2018-05-14] MEDS: Torsemide 20 MG Tablet PO SCH (08:37)
[2018-05-14] MEDS: Pantoprazole Sodium 20 MG DR Tablet PO SCH (08:37)
[2018-05-14] MEDS: Digoxin 125 MCG Tablet PO SCH (08:37)
[2018-05-14] MEDS: Sertraline 50 MG Tablet PO SCH (08:37)
--- NOTE | 2018-05-14 10:17 | P.PNCA ---
Subjective Interval history: Wants to go h ome feels well BP stable. Physical Exam Vital signs: Vital Signs 05/13/18 11:00 05/13/18 11:39 05/13/18 12:00 Temperature 98.3 F Pulse Rate 93 H 96 H Respiratory Rate 18 Blood Pressure 104/62 Pulse Oximetry 96 97 95 05/13/18 12:18 05/13/18 13:00 05/13/18 14:00 Temperature Pulse Rate 112 H 88 Respiratory Rate Blood Pressure Pulse Oximetry 96 05/13/18 15:00 05/13/18 16:00 05/13/18 17:00 Temperature 98.6 F Pulse Rate 89 90 94 H Respiratory Rate 18 Blood Pressure Pulse Oximetry 94 L 05/13/18 19:00 05/13/18 20:00 05/13/18 21:00 Temperature 97.8 F Pulse Rate 99 H 99 H 118 H Respiratory Rate 22 Blood Pressure 111/56 L Pulse Oximetry 96 05/13/18 22:00 05/13/18 23:00 05/14/18 00:00 Temperature 97.8 F Pulse Rate 110 H 92 H 113 H Respiratory Rate 20 Blood Pressure 112/57 L Pulse Oximetry 96 05/14/18 01:00 05/14/18 02:00 05/14/18 03:00 Temperature Pulse Rate 102 H 100 H 86 Respiratory Rate Blood Pressure Pulse Oximetry 05/14/18 04:00 05/14/18 05:00 05/14/18 06:00 Temperature 98 F Pulse Rate 112 H 78 83 Respiratory Rate 20 Blood Pressure 130/91 H Pulse Oximetry 95 05/14/18 07:00 05/14/18 08:00 05/14/18 09:00 Temperature 98.1 F Pulse Rate 97 H 110 H 114 H Respiratory Rate 20 Blood Pressure 135/75 Pulse Oximetry 96 05/14/18 10:00 Temperature Pulse Rate 108 H Respiratory Rate Blood Pressure Pulse Oximetry Intake & Output 05/13/18 05/14/18 05/14/18 18:59 06:59 18:59 Intake Total 975 / 975 420 / 420 Output Total 900 / 900 600 / 600 Balance 75 / 75 -180 / -180 Weight 86 kg Intake: Oral 975 / 975 420 / 420 Output: Urine 900 / 900 600 / 600 Other: Date of Last Bowel Movement 05/11/18 # Bowel Movements 0 - Constitutional no acute distress - Routine HEENT Exam Head: Present: normocephalic Eye: Present: EOMI ENT: Present: mucous membranes moist - Routine Neck Exam Present: supple - Routine Respiratory Exam Present: CTA bilaterally - Routine Cardiovascular Exam Present: RRR (No S3) - Routine Extremities Exam Comments: Trace edema Assessment and Plan - Plan Assessment Atrial fibrillation controlled anticoagulated on Pradaxa Cardiomyopathy ejection fraction 20-25% on echocardiogram April 15, 2018. Etiology unknown. Recurrent hypotension Chronic kidney disease Plan: OK for discharge The patient will need to follow-up with Dr. Laird following discharge next week, On MAY 17
--- NOTE | 2018-05-14 10:49 | P.PN ---
Subjective Interval history: Follow-up AShayla purdy with RVR/systolic CHF exacerbation May 10, 2018-patient seen and examined, currently rate controlled and denies any chest pain or significant shortness of breath. Complains of urinary retention and has some occasional dribbling. He is not currently wearing his LifeVest May 11, 2018-patient seen and examined, rate not controlled. Denies any chest pain however reports some shortness of breath; otherwise no acute event overnight May 12, 2018-patient seen and examined, states he is short of breath with activity otherwise stable May 13, 2018-patient seen and examined, rate currently controlled. Patient denies any significant shortness of breath. States he is feeling much better. May 14, 2018-patient seen and examined, no acute event overnight, rate controlled, stable, denies any shortness of breath. Wants to go home. Physical Exam Vital signs: Vital Signs 05/13/18 11:00 05/13/18 11:39 05/13/18 12:00 Temperature 98.3 F Pulse Rate 93 H 96 H Respiratory Rate 18 Blood Pressure 104/62 Pulse Oximetry 96 97 95 05/13/18 12:18 05/13/18 13:00 05/13/18 14:00 Temperature Pulse Rate 112 H 88 Respiratory Rate Blood Pressure Pulse Oximetry 96 05/13/18 15:00 05/13/18 16:00 05/13/18 17:00 Temperature 98.6 F Pulse Rate 89 90 94 H Respiratory Rate 18 Blood Pressure Pulse Oximetry 94 L 05/13/18 19:00 05/13/18 20:00 05/13/18 21:00 Temperature 97.8 F Pulse Rate 99 H 99 H 118 H Respiratory Rate 22 Blood Pressure 111/56 L Pulse Oximetry 96 05/13/18 22:00 05/13/18 23:00 05/14/18 00:00 Temperature 97.8 F Pulse Rate 110 H 92 H 113 H Respiratory Rate 20 Blood Pressure 112/57 L Pulse Oximetry 96 05/14/18 01:00 05/14/18 02:00 05/14/18 03:00 Temperature Pulse Rate 102 H 100 H 86 Respiratory Rate Blood Pressure Pulse Oximetry 05/14/18 04:00 05/14/18 05:00 05/14/18 06:00 Temperature 98 F Pulse Rate 112 H 78 83 Respiratory Rate 20 Blood Pressure 130/91 H Pulse Oximetry 95 05/14/18 07:00 05/14/18 08:00 05/14/18 09:00 Temperature 98.1 F Pulse Rate 97 H 110 H 114 H Respiratory Rate 20 Blood Pressure 135/75 Pulse Oximetry 96 05/14/18 10:00 Temperature Pulse Rate 108 H Respiratory Rate Blood Pressure Pulse Oximetry Intake & Output 05/13/18 05/14/18 05/14/18 18:59 06:59 18:59 Intake Total 975 / 975 420 / 420 Output Total 900 / 900 600 / 600 Balance 75 / 75 -180 / -180 Weight 86 kg Intake: Oral 975 / 975 420 / 420 Output: Urine 900 / 900 600 / 600 Other: Date of Last Bowel Movement 05/11/18 # Bowel Movements 0 Narrative: GENERAL: NAD SKIN: Warm and dry. HEAD: Normocephalic. EYES: No scleral icterus. No injection or drainage. NECK: Supple, trachea midline. No JVD or lymphadenopathy. CARDIOVASCULAR: Irregular regular rate and rhythm without murmurs, gallops, or rubs. RESPIRATORY: Breath sounds equal bilaterally. No accessory muscle use. GASTROINTESTINAL: Abdomen soft, non-tender, nondistended. MUSCULOSKELETAL: No cyanosis, or edema. BACK: Nontender without obvious deformity. No CVA tenderness. Results - Labs CBC & Chem 7: 05/09/18 18:00 05/12/18 05:53 - Procedures None Assessment and Plan - Assessment (1) Atrial fibrillation with RVR Code(s): I48.91 - Unspecified atrial fibrillation Status: Acute (2) Cardiomyopathy Code(s): I42.9 - Cardiomyopathy, unspecified Status: Acute - Plan 68-year-old man with Atrial fibrillation with rapid ventricular response Currently on Toprol XL 30 mg twice daily, digoxin On Coreg and continue Pradaxa Appreciate input from cardiology Cardiomyopathy ejection fraction 20-25% on echocardiogram April 15, 2018. Etiology unknown. Was discharged with LifeVest on prior hospitalization, Patient advised to have LifeVest on prior to discharge Exacerbation of congestive heart failure with decreased ejection fraction- improving Continued Entresto and torsemide 20 mg daily, status post Lasix 40 mg IV every 12 Appreciate input from cardiology Chronic kidney disease Monitor BUN and creatinine Hypertension/hyperlipidemia/GERD Continue home medications (2) Cardiomyopathy Qualifiers: Cardiomyopathy type: unspecified Qualified Code(s): I42.9 - Cardiomyopathy, unspecified
--- NOTE | 2018-05-14 10:50 | P.DS ---
Date of admission: 05/09/18 20:38 Primary care physician: [facility] Anticipated date of discharge: 05/14/18 Brief History from admission: 68-year-old male with a past medical history significant for CHF (EF of 20-25% on echo 04/16/18), hypertension, hyperlipidemia, atrial fibrillation anticoagulated on Pradaxa and GERD presents to the emergency department for the evaluation of bilateral lower extremity edema, shortness of breath and atrial fibrillation with rapid ventricular response. The patient reports that his feet began swelling approximately 2 days ago. He states his shortness of breath started about that time and has worsened over the past 2 days. He was seen [facility] the [facility] today and was sent to the emergency department for further evaluation as he was in A. fib with RVR and had gained 9 pounds since his last appointment. He denies any chest pain. No abdominal pain. No nausea/vomiting/ diarrhea. No fever/chills. No lateralizing signs/symptoms. DS: Diagnosis - Discharge Diagnosis (1) Atrial fibrillation with RVR Status: Acute (2) Cardiomyopathy Status: Acute DS: Summary Hospital Course: While in hospital, patient was treated for: Atrial fibrillation with rapid ventricular response He was on Cardizem drip which was discontinued He was switched on Toprol XL 30 mg twice daily, digoxin continue Pradaxa Appreciate input from cardiology Cardiomyopathy ejection fraction 20-25% on echocardiogram April 15, 2018. Etiology unknown. Was discharged with LifeVest on prior hospitalization, Patient advised to have LifeVest on prior to discharge Exacerbation of congestive heart failure with decreased ejection fraction- improving Continued Entresto and torsemide 20 mg daily, status post Lasix 40 mg IV every 12 Appreciate input from cardiology Chronic kidney disease Monitor BUN and creatinine Hypertension/hyperlipidemia/GERD Continue home medications - Time Spent with Patient Total time spent providing and/or coordinating discharge services: Less than 30 minutes - Quality: VTE Deep Vein Thrombosis/Pulmonary Embolism Present on Admission: No Exam Vital signs: Vital Signs 05/13/18 11:00 05/13/18 11:39 05/13/18 12:00 Temperature 98.3 F Pulse Rate 93 H 96 H Respiratory Rate 18 Blood Pressure 104/62 Pulse Oximetry 96 97 95 05/13/18 12:18 05/13/18 13:00 05/13/18 14:00 Temperature Pulse Rate 112 H 88 Respiratory Rate Blood Pressure Pulse Oximetry 96 05/13/18 15:00 05/13/18 16:00 05/13/18 17:00 Temperature 98.6 F Pulse Rate 89 90 94 H Respiratory Rate 18 Blood Pressure Pulse Oximetry 94 L 05/13/18 19:00 05/13/18 20:00 05/13/18 21:00 Temperature 97.8 F Pulse Rate 99 H 99 H 118 H Respiratory Rate 22 Blood Pressure 111/56 L Pulse Oximetry 96 05/13/18 22:00 05/13/18 23:00 05/14/18 00:00 Temperature 97.8 F Pulse Rate 110 H 92 H 113 H Respiratory Rate 20 Blood Pressure 112/57 L Pulse Oximetry 96 05/14/18 01:00 05/14/18 02:00 05/14/18 03:00 Temperature Pulse Rate 102 H 100 H 86 Respiratory Rate Blood Pressure Pulse Oximetry 05/14/18 04:00 05/14/18 05:00 05/14/18 06:00 Temperature 98 F Pulse Rate 112 H 78 83 Respiratory Rate 20 Blood Pressure 130/91 H Pulse Oximetry 95 05/14/18 07:00 05/14/18 08:00 05/14/18 09:00 Temperature 98.1 F Pulse Rate 97 H 110 H 114 H Respiratory Rate 20 Blood Pressure 135/75 Pulse Oximetry 96 05/14/18 10:00 Temperature Pulse Rate 108 H Respiratory Rate Blood Pressure Pulse Oximetry Intake & Output 05/13/18 05/14/18 05/14/18 18:59 06:59 18:59 Intake Total 975 / 975 420 / 420 Output Total 900 / 900 600 / 600 Balance 75 / 75 -180 / -180 Weight 86 kg Intake: Oral 975 / 975 420 / 420 Output: Urine 900 / 900 600 / 600 Other: Date of Last Bowel Movement 05/11/18 # Bowel Movements 0 Narrative: GENERAL: NAD SKIN: Warm and dry. HEAD: Normocephalic. EYES: No scleral icterus. No injection or drainage. NECK: Supple, trachea midline. No JVD or lymphadenopathy. CARDIOVASCULAR: Irregular regular rate and rhythm without murmurs, gallops, or rubs. RESPIRATORY: Breath sounds equal bilaterally. No accessory muscle use. GASTROINTESTINAL: Abdomen soft, non-tender, nondistended. MUSCULOSKELETAL: No cyanosis, or edema. BACK: Nontender without obvious deformity. No CVA tenderness. Results Procedures completed during hospitalization: None - Impressions ITS Impressions Chest X-Ray 05/09/18 17:44 CONCLUSION: Trace bibasilar atelectasis and tiny right pleural effusion. Venous Doppler Study 05/09/18 19:17 CONCLUSION: Negative study. No venous thrombosis of the right lower extremity. Discharge Plan - Discharge Disposition Patient Disposition: 01 Discharge Home - Discharge Condition Condition: Good - Discharge Order Discharge Orders: Discharge Order (Routine); Ordered 05/14/18 Ordered By: Fidencio Carvalho - Physicians Team Primary Care Provider: [facility] Attending Provider: Fidencio Carvalho Other Providers: Lee Stein MD
== END 2018-05-14 12:00 | disposition home or self-care (01) ==
LOC: NEPE 15:54 → NEDA 20:38 → HCPC 23:42
PROVIDERS: ADMIT Hospitalist; ATTEND Hospitalist